=== PATIENT | female | born 1980 | race American Indian/Alaskan Native ===

== ENCOUNTER 2019-12-25 10:56 | Day surgery (SDC) | payer MEDICAID ==
[2019-12-23 14:08] LABS: Hematocrit 36.5 % (30.3-42.9); Hemoglobin 12.9 gm/dl (10.1-14.3); Mean Corpuscular HGB Conc 35 % (30-34); Mean Corpuscular Volume 85 fl (79-97); Platelet Count 314 K/mm3 (140-440); Red Blood Count 4.29 M/mm3 (3.65-5.03); Red Cell Distribution Width 12.9 % (13.2-15.2)
[2019-12-23 14:33] LABS: Calcium 9.2 mg/dL (8.4-10.2)
--- NOTE | 2019-12-23 14:37 | Anesthesia Consultation ---
Anesthesia Consult and Med Hx Date of service: 12/25/19 - Airway Anesthetic Teeth Evaluation: Good ROM Head & Neck: Adequate Mental/Hyoid Distance: Adequate Mallampati Class: Class II Intubation Access Assessment: Probably Good - Pulmonary Exam CTA: Yes - Cardiac Exam Cardiac Exam: RRR - Pre-Operative Health Status ASA Pre-Surgery Classification: ASA3 Proposed Anesthetic Plan: General - Pulmonary Hx Smoking: No Hx Asthma: Yes (last albulterol use 10/2019; instructed to bring inhaler morning of surgery) Hx Respiratory Symptoms: No - Cardiovascular System Hx Hypertension: Yes Hx Heart Attack/AMI: No Hx Percutaneous Transluminal Coronary Angioplasty (PTCA): No Hx Cardia Arrhythmia: No - Central Nervous System Hx Neuromuscular Disorder: Yes (narcolepsy; no meds) Hx Seizures: Yes (last seizure 10/2019; instructed to take AEDs morning of surgery.) CVA: No Hx Psychiatric Problems: Yes (depression) - Gastrointestinal Hx Gastroesophageal Reflux Disease: Yes - Endocrine Hx Renal Disease: No Hx Liver Disease: No Hx Insulin Dependent Diabetes: Yes (instructed to take 2/3rds usual bedtime insulin dose night before surgery) Hx Thyroid Disease: No - Hematic Hx Anemia: No - Other Systems Hx Obesity: No - Additional Comments Anesthesia Medical History Comments: No hx anesthetic complications.
[2019-12-23 16:46] VITALS: BP 141/79
[~2019-12-25 10:56] MED LIST: ACETAMINOPHEN 500 MG TAB PO SCH; GABAPENTIN 300 MG CAP PO NR; LACTATED RINGERS 1,000 ML IV SCH; MIDAZOLAM 2 MG/2 ML INJ IV NR
== END 2019-12-25 10:57 | disposition home or self-care (01) ==
LOC: OR 10:56
PROVIDERS: ATTEND Obstetrics & Gynecology
DX: R10.2 Pelvic and perineal pain (principal); Z20.828 Contact with and (suspected) exposure to other viral communicable diseases; Z53.8 Procedure and treatment not carried out for other reasons; G43.909 Migraine, unspecified, not intractable, without status migrainosus; I10 Essential (primary) hypertension; K21.9 Gastro-esophageal reflux disease without esophagitis; E11.9 Type 2 diabetes mellitus without complications; F32.9 Major depressive disorder, single episode, unspecified; N83.201 Unspecified ovarian cyst, right side; Z88.8 Allergy status to other drugs, medicaments and biological substances; Z98.42 Cataract extraction status, left eye; Z98.890 Other specified postprocedural states; Z90.49 Acquired absence of other specified parts of digestive tract; Z87.440 Personal history of urinary (tract) infections; Z79.899 Other long term (current) drug therapy
CPT/HCPCS: 36415; 80048; 84703; 85027; J7120; U0003; J2250

== ENCOUNTER 2019-12-31 11:48 | Observation (INO) | payer MEDICAID ==
[~2019-12-31 11:48] MED LIST changes: +BUPIVACAINE/PF (0.5%) 5 MG/1 ML 30 ML VIAL INFILTRATI ONE; +SCOPOLAMINE TRANSDERMAL PATCH 72 HR TD NR
--- NOTE | 2019-12-31 12:41 | Anesthesia Day of Surgery ---
Anesthesia Day of Surgery - Day of Surgery Patient Examined: Yes Patient H&P Reviewed: Yes Patient is NPO: Yes Beta Blockers: Yes (12/30/19 pm)
[2019-12-31] MEDS ORDERED: INSULIN REGULAR, HUMAN 100 UNITS/1 ML ONE (13:00)
[2019-12-31] MEDS ORDERED: BUPIVACAINE/PF (0.5%) 5 MG/1 ML 30 ML VIAL INFILTRATI ONE ×2 (13:19→15:00)
[2019-12-31] MEDS ORDERED: GENTAMICIN/NS 120MG/100ML 120 MG/100 ML BAG IV SCH (13:28)
[2019-12-31] MEDS ORDERED: ROCURONIUM 50 MG/5 ML INJ IV ONE (13:36)
[2019-12-31] MEDS ORDERED: dexAMETHasone 20 MG/5 ML VIAL ONE (13:36)
[2019-12-31] MEDS ORDERED: LIDOCAINE MPF (2%) 20 MG/1 ML VIAL 5 ML ONE (13:36)
[2019-12-31] MEDS ORDERED: propofoL 200 MG/20 ML VIAL IV ONE (13:36)
[2019-12-31] MEDS ORDERED: HYDROmorphone 1 MG/1 ML INJ ONE (13:36)
[2019-12-31] MEDS ORDERED: ONDANSETRON 4 MG/2 ML INJ ONE (13:36)
[2019-12-31] MEDS ORDERED: INSULIN REGULAR, HUMAN 100 UNIT/ML 3ML VIAL IV ONE (13:43)
[2019-12-31] MEDS ORDERED: GLYCOPYRROLATE 0.4 MG/2 ML INJ ONE (14:57)
[2019-12-31] MEDS ORDERED: NEOSTIGMINE 10MG/10 ML INJ MDV ONE (14:57)
[2019-12-31] MEDS ORDERED: LACTATED RINGERS 1,000 ML ONE (15:15)
--- NOTE | 2019-12-31 15:35 | Operative Report ---
Operative Report Operative Report: Preoperative diagnosis: Pelvic pain,adnexal mass Postoperative diagnosis: Same Procedure: Exam under anesthesia, removal of IUD, operative laparoscopy with left ovarian cystectomy Surgeon: Dr. Sue Kaur Anesthesia:GET Complications: None EBL: Less than 25ml IV fluid: 1 L crystalloid Urine output: 100 mL, adequate and clear Drain: None Findings: Normal uterine size, bilateral ovarian nodularity, left ovarian cyst, no pelvic adhesions Procedure: Patient was taken to the operating room after receiving informed consent in preop holding. She was given excellent general endotracheal anesthesia. She was then placed in the dorsal lithotomy position prepped and draped in a sterile fashion. A timeout was verified. A Casillas catheter was placed atraumatically. A speculum was placed in the vaginal vault and the anterior lip of the cervix grasped with a single-tooth tenaculum. The Mirena IUD strings were easily visualized and grasped with a ring forceps, and the IUD removed atraumatically. The uterine acorn manipulator was then advanced into the endocervical canal. Attention turned to the abdomen. A infraumbilical incision was made sharply with a scalpel and taken down to the underlying fascia. The fascia was grasped with Sg clamps and incised in the midline to allow for atraumatic entry of a Velazquez trocar. Correct placement of the Velazquez trocar was confirmed under direct visualization. Patient was then placed in steep Trendelenburg. A 5 mm left lateral trocar port was placed under direct visualization without complication. The uterus was noted to be midline without pathology, the ovaries bilaterally were noted to be nodular with no obvious pathology. There was a distinct left ovarian cyst that was removed with the LigaSure with excellent hemostasis. The abdomen was copiously irrigated with normal saline with no active bleeding noted at the completion of the procedure. The ovarian cyst was removed with an Endobag and sent to pathology. The Velazquez trocar and the left lateral port removed atraumatically. The fascia was closed with 0 Vicryl in a [id number] suture. The skin was closed with Monocryl and Dermabond applied at both incision sites. Patient's mother was notified of her stable condition at the completion of the procedure. Patient was taken to the recovery area in stable condition she will follow-up as an outpatient. Dr Sue Kaur
[2019-12-31] MEDS: HYDROmorphone 1 MG/1 ML INJ IV PRN ×2 (15:44→15:55)
--- NOTE | 2019-12-31 18:00 | Post Anesthesia Evaluation ---
- Post Anesthesia Evaluation Patient Participated: Yes Airway Patent: Yes Stable Respiratory Function: Yes Nausea/Vomiting: No Temp > 96.8F: Yes Pain Manageable: Yes Adequeate Hydration: Yes Anesthesia Complications: No Other Comments: After meeting criteria for phase II, patient was assisted to the restroom where she lost consciousness and had possible seizure activity. Pulse and adequate respirations were maintained. OR staff transferred patient to stretcher without injury and she was reconnected to monitors and O2. First set VS were near preop baseline. Presumed seizure activity had stopped at this time without intervention. Surgeon updated on events and decision was made to admit overnight for observation w/ possible neuro consult in the morning. Hospitalist was consulted. Over the next hour, patient became arousable, was oriented, and confirmed that she felt similar to previous seizure episodes. There were no focal neurologic deficits. Patient's family was updated.
[2019-12-31] MEDS ORDERED: SODIUM CHLORIDE 0.9% 1000 ML 1,000 ML IV SCH (20:00)
[2019-12-31 21:01] LABS: Basophils % (Auto) 0.4 % (0.0-1.8); Eosinophils % (Auto) 0.1 % (0.0-4.3); Hemoglobin 11.9 gm/dl (10.1-14.3); Lymphocytes # (Auto) 1.7 K/mm3 (1.2-5.4); Lymphocytes % (Auto) 13.9 % (13.4-35.0); Mean Corpuscular HGB Conc 37 % (30-34); Mean Corpuscular Volume 84 fl (79-97); Monocytes # (Auto) 0.6 K/mm3 (0.0-0.8); Monocytes % (Auto) 4.8 % (0.0-7.3); Platelet Count 258 K/mm3 (140-440); Red Blood Count 3.86 M/mm3 (3.65-5.03); Red Cell Distribution Width 12.8 % (13.2-15.2)
[2019-12-31 21:02] LABS: Hematocrit 32.6 % (30.3-42.9)
[2020-01-01] MEDS: HYDROcodone/ACETAMINOPHEN 5-325 MG TAB PO PRN ×2 (06:12→12:43)
[2020-01-01] MEDS ORDERED: ALBUTEROL 2.5 MG/3 ML NEBU IH PRN (09:11)
[2020-01-01] MEDS ORDERED: FLUoxetine 20 MG CAP PO SCH (10:00)
[2020-01-01] MEDS ORDERED: lamoTRIgine 100 MG TAB PO SCH (10:00)
--- NOTE | 2020-01-01 10:47 | History and Physical Report ---
History of Present Illness Date of examination: 01/01/20 Date of admission: 12/31/19 17:23 Medications and Allergies Allergies Allergy/AdvReac Type Severity Reaction Status Date / Time ceftriaxone [From Rocephin] Allergy Seizure Verified 12/28/19 13:01 minocycline Allergy Seizure Verified 12/28/19 13:01 iv dye Allergy Seizure Uncoded 12/28/19 13:01 Home Medications Medication Instructions Recorded Confirmed Last Taken Type FLUoxetine [PROzac] 20 mg PO QDAY 08/12/15 12/31/19 12/30/19 20:00 History labetaloL [Normodyne] 200 mg PO BID 08/12/15 12/31/19 12/31/19 08:00 History lamoTRIgine [LaMICtal] 100 mg PO BID 08/12/15 12/31/19 12/31/19 08:00 History Albuterol Sulfate [Proventil Hfa] 2 puff IH Q4H PRN 12/23/19 12/31/19 12/30/19 20:00 History Ibuprofen [Motrin] 600 mg PO Q8H PRN #60 tablet 12/31/19 Unknown Rx oxyCODONE /ACETAMINOPHEN [Percocet 1 tab PO Q6HR PRN #20 tablet 12/31/19 Unknown Rx 5/325] Active Meds: Active Medications Hydrocodone Bitart/Acetaminophen ([place] 5/325) 2 each PO Q6H PRN PRN Reason: Pain, Moderate (4-6) Last Admin: 01/01/20 06:12 Dose: 2 each Documented by: Albuterol (Proventil) 2.5 mg IH Q4HRT PRN PRN Reason: Shortness Of Breath Fluoxetine HCl (Prozac) 20 mg PO QDAY JAME Last Admin: 01/01/20 10:13 Dose: 20 mg Documented by: Hydromorphone HCl (Dilaudid) 0.5 mg IV Q10MIN PRN PRN Reason: Pain , Severe (7-10) Stop: 01/01/20 13:34 Last Admin: 12/31/19 15:55 Dose: 0.5 mg Documented by: Clindamycin HCl (Cleocin 900 Mg/50 Ml) 900 mg in 50 mls @ 100 mls/hr IV PREOP NR; Protocol Stop: 01/01/20 13:26 Last Admin: 12/31/19 13:45 Dose: 100 mls/hr Documented by: Gentamicin Sulfate/Sodium Chloride (Gentamicin/Ns 120mg/100ml) 120 mg in 100 mls @ 194.175 mls/hr IV PREOP JAME; Protocol Stop: 01/01/20 13:27 Sodium Chloride (Nacl 0.9% 1000 Ml) 1,000 mls @ 75 mls/hr IV DIRECT JAME Labetalol HCl (Labetalol) 200 mg PO BID [facility] Last Admin: 01/01/20 10:13 Dose: 200 mg Documented by: Lamotrigine (Lamictal) 100 mg PO BID [facility] Last Admin: 01/01/20 10:13 Dose: 100 mg Documented by: - Vital Signs Vital signs: Vital Signs Temp Pulse Resp BP Pulse Ox 98.1 F 86 18 131/79 97 12/31/19 12:10 12/31/19 12:10 12/31/19 12:10 12/31/19 12:10 12/31/19 12:10 Temp Pulse Resp BP Pulse Ox 98.5 F 83 18 153/94 98 01/01/20 06:06 01/01/20 06:06 01/01/20 06:06 01/01/20 06:06 01/01/20 06:06 Results Result Diagrams: 12/31/19 20:36 Abnormal lab results 12/31/19 12/31/19 12/31/19 Range/Units 12:52 15:46 17:23 WBC (4.5-11.0) K/mm3 MCHC (30-34) % RDW (13.2-15.2) % Seg Neutrophils % (40.0-70.0) % Seg Neutrophils # (1.8-7.7) K/mm3 POC Glucose 206 H 153 H 199 H (70-105) mg/dL 12/31/19 Range/Units 20:36 WBC 12.0 H (4.5-11.0) K/mm3 MCHC 37 H (30-34) % RDW 12.8 L (13.2-15.2) % Seg Neutrophils % 80.8 H (40.0-70.0) % Seg Neutrophils # 9.7 H (1.8-7.7) K/mm3 POC Glucose (70-105) mg/dL All other labs normal.
--- NOTE | 2020-01-01 10:50 | Discharge Summary ---
Providers - Providers Date of Admission: 12/31/19 17:23 Date of discharge: 01/01/20 Attending physician: KAT ABREU MD Primary care physician: SURGICAL COORDINATOR Hospitalization Reason for admission: other (IUD in situ, left ovarian cyst) Procedure: other (left ovarian cystectomy, IUD removal) Procedure details: s/p uncomplicated IUD removal and Left laparoscopic cystectomy for pelvic pain and adnexal mass. Episiotomy: none Laceration: none Incision: normal Hospital course: Admitted for IUD removal and laparoscopic L cystectomy. Uncomplicated procedure, however admitted for postoperative seizure episode. Known seizure hx on Lamictal. Denies missing dose. Meeting postoperative goals on POD1. Discharge in good condition. Condition at discharge: Good Disposition: DC- TO HOME OR SELFCARE - Discharge Diagnoses (1) Left ovarian cyst Status: Acute Plan - Discharge Medications Prescriptions: Ibuprofen [Motrin] 600 mg PO Q8H PRN #60 tablet PRN Reason: Pain oxyCODONE /ACETAMINOPHEN [Percocet 5/325] 1 tab PO Q6HR PRN #20 tablet PRN Reason: Pain - Provider Discharge Summary Additional instructions: [] Smoking cessation referral if applicable(refer to patient education folder for contact #) [] Refer to [facility] Booklet Call your doctor immediately for: * Fever > 100.5 * Heavy vaginal bleeding ( >1 pad per hour) * Severe persistent headache * Shortness of breath * Reddened, hot, painful area to leg or breast * Drainage or odor from incision. * Keep incision clean and dry at all times and follow doctor's instructions regarding bathing/showering - Follow up plan Follow up: PRIMARY CAREMD [Primary Care Provider] - 7 Days Forms: Outpatient Surgery DC Inst.
[2020-01-01 13:47] VITALS: BP 139/79
== END 2020-01-01 14:45 | disposition home or self-care (01) ==
LOC: OR 11:48 → 3A 17:23
PROVIDERS: ADMIT Obstetrics & Gynecology; ATTEND Obstetrics & Gynecology
DX: N83.202 Unspecified ovarian cyst, left side (principal); Z20.828 Contact with and (suspected) exposure to other viral communicable diseases; R19.00 Intra-abdominal and pelvic swelling, mass and lump, unspecified site; Z30.432 Encounter for removal of intrauterine contraceptive device; Z79.899 Other long term (current) drug therapy
CPT/HCPCS: 36415; 58301; 58662; 81025; 82962; 85025; 88304; 96361; 96374; 96375; G0378; J1100; J1170; J1580; J2250; J2405; J2704; J2710; J7030; J7120; U0003; J1815

== ENCOUNTER 2020-01-03 01:06 | Inpatient (IN) | payer MEDICAID ==
[2020-01-03] MEDS ORDERED: HYDROmorphone 1 MG/1 ML INJ IV ONE (01:19)
[2020-01-03] MEDS ORDERED: ONDANSETRON 4 MG/2 ML INJ IV ONE (01:19)
[2020-01-03] MEDS ORDERED: SODIUM CHLORIDE 0.9% 1000 ML 1,000 ML IV ONE (01:26)
--- NOTE | 2020-01-03 01:27 | Emergency Department Report ---
ED Abdominal Pain HPI - General Stated Complaint: HERNIA/SURGICAL SITE OPENED PUI?: No Time Seen by Provider: 01/03/20 01:14 Source: patient, EMS, old records reviewed Mode of arrival: Stretcher Limitations: No Limitations - History of Present Illness Initial Comments: CC: abdominal pain HPI: This is a 39 yo female with hx of DM, HTN, epilepsy, narcolepsy who presents with bowel evisceration after coughing this evening. Patient arrives via EMS in 12/04 pain. Bowel is protruding through umbilical surgical wound. Patient received Fentanyl en route. According to recent discharge summary, patient was discharged 2 days ago 01/01/2020 after IUD removal and left laparoscopic cystectomy by Dr. Kaur. Surgery occurred on 12/31/2019 MD Complaint: abdominal pain -: Sudden, This evening Location: periumbilical Radiation: none Severity: severe Severity scale (0 -10): 10 Quality: sharp Consistency: constant Improves With: nothing Worsens With: movement Associated Symptoms: denies other symptoms - Related Data Home Medications Medication Instructions Recorded Confirmed Last Taken FLUoxetine [PROzac] 20 mg PO QDAY 08/12/15 12/31/19 12/30/19 20:00 labetaloL [Normodyne] 200 mg PO BID 08/12/15 12/31/19 12/31/19 08:00 lamoTRIgine [LaMICtal] 100 mg PO BID 08/12/15 12/31/19 12/31/19 08:00 Albuterol Sulfate [Proventil Hfa] 2 puff IH Q4H PRN 12/23/19 12/31/19 12/30/19 20:00 Previous Rx's Medication Instructions Recorded Last Taken Type Ibuprofen [Motrin] 600 mg PO Q8H PRN #60 tablet 12/31/19 Unknown Rx oxyCODONE /ACETAMINOPHEN [Percocet 1 tab PO Q6HR PRN #20 tablet 12/31/19 Unknown Rx 5/325] Allergies Allergy/AdvReac Type Severity Reaction Status Date / Time ceftriaxone [From Rocephin] Allergy Seizure Verified 12/28/19 13:01 minocycline Allergy Seizure Verified 12/28/19 13:01 iv dye Allergy Seizure Uncoded 12/28/19 13:01 ED Review of Systems ROS: Stated complaint: HERNIA/SURGICAL SITE OPENED Other details as noted in HPI Comment: All other systems reviewed and negative Constitutional: denies: fever, malaise Respiratory: denies: cough, shortness of breath Gastrointestinal: abdominal pain, nausea. denies: vomiting, diarrhea ED Past Medical Hx - Past Medical History Previous Medical History?: Yes Hx Hypertension: Yes Hx Congestive Heart Failure: No Hx Diabetes: Yes (Type 2) Hx GERD: Yes Hx Headaches / Migraines: Yes (Migraines) Hx Seizures: Yes Hx Asthma: Yes (last albulterol use 10/2019; instructed to bring inhaler morning of surgery) Hx COPD: No - Surgical History Past Surgical History?: Yes Hx Cholecystectomy: Yes - Social History Smoking Status: Never Smoker - Medications Home Medications: Home Medications Medication Instructions Recorded Confirmed Last Taken Type FLUoxetine [PROzac] 20 mg PO QDAY 08/12/15 12/31/19 12/30/19 20:00 History labetaloL [Normodyne] 200 mg PO BID 08/12/15 12/31/19 12/31/19 08:00 History lamoTRIgine [LaMICtal] 100 mg PO BID 08/12/15 12/31/19 12/31/19 08:00 History Albuterol Sulfate [Proventil Hfa] 2 puff IH Q4H PRN 12/23/19 12/31/19 12/30/19 20:00 History Ibuprofen [Motrin] 600 mg PO Q8H PRN #60 tablet 12/31/19 Unknown Rx oxyCODONE /ACETAMINOPHEN [Percocet 1 tab PO Q6HR PRN #20 tablet 12/31/19 Unknown Rx 5/325] ED Physical Exam - General General appearance: alert, in no apparent distress, other (appears in severe discomfort) - Head Head exam: Present: atraumatic, normocephalic - Eye Eye exam: Present: normal appearance - ENT ENT exam: Present: mucous membranes moist - Neck Neck exam: Present: normal inspection, full ROM - Respiratory Respiratory exam: Present: normal lung sounds bilaterally. Absent: respiratory distress, wheezes, rales, rhonchi - Cardiovascular Cardiovascular Exam: Present: regular rate, normal rhythm, normal heart sounds. Absent: systolic murmur, diastolic murmur, rubs, gallop - GI/Abdominal GI/Abdominal exam: Present: distended, tenderness, guarding, hernia (bowel evisceration at umbilicus) - Extremities Exam Extremities exam: Present: normal inspection - Back Exam Back exam: Present: normal inspection - Neurological Exam Neurological exam: Present: alert, oriented X3 - Psychiatric Psychiatric exam: Present: normal affect, normal mood - Skin Skin exam: Present: warm, dry, intact, normal color. Absent: rash ED Medical Decision Making - Medical Decision Making Clinical impression: wound dehiscence, bowel evisceration, strangulated hernia I immediately spoke with Dr. Nagy covering kiln puller who recommended general surgery consultation. I spoke with Dr. Eaton who readily agreed to assist with patient's surgical treatment. He recommended IV Zosyn preoperative dose. Dr. Burden hospitalist agreed to admit Critical Care Time: Yes Critical care time in (mins) excluding proc time.: 40 Critical care attestation.: If time is entered above; I have spent that time in minutes in the direct care of this critically ill patient, excluding procedure time. 40 minutes of critical care time excluding procedures were used in the care of the patient. Prior to patient's arrival, provided online medical control to EMS for fentanyl administration. I came immediately to the bedside upon patient's arrival. I obtained history from EMS at the bedside. I discussed treatment plan with the nursing team members. I reviewed electronic record. I was concerned for strangulated bowel. I immediately consulted kiln puller. Patient required multiple interventions and reassessments. ED Disposition Clinical Impression: Evisceration of bowel, Wound dehiscence, Strangulated hernia of abdominal wall Disposition: OP ADMIT IP TO THIS HOSP Is pt being admited?: Yes Does the pt Need Aspirin: No Condition: Stable
[2020-01-03] MEDS ORDERED: PIPERACIL/TAZOBACTA 4.5/NS 100 4.5 GM/100 ML VIAL IV ONE (01:40)
[2020-01-03 02:01] LABS: Basophils % (Auto) 0.2 % (0.0-1.8); Eosinophils # (Auto) 0.1 K/mm3 (0.0-0.4); Eosinophils % (Auto) 1.2 % (0.0-4.3); Hematocrit 39.3 % (30.3-42.9); Hemoglobin 13.8 gm/dl (10.1-14.3); Lymphocytes # (Auto) 1.5 K/mm3 (1.2-5.4); Lymphocytes % (Auto) 16.4 % (13.4-35.0); Mean Corpuscular HGB Conc 35 % (30-34); Mean Corpuscular Volume 88 fl (79-97); Monocytes # (Auto) 0.8 K/mm3 (0.0-0.8); Monocytes % (Auto) 8.9 % (0.0-7.3); Platelet Count 267 K/mm3 (140-440); Red Cell Distribution Width 12.6 % (13.2-15.2)
[2020-01-03 02:21] LABS: BUN/Creatinine Ratio 6; Blood Urea Nitrogen 7 mg/dL (7-17); Calcium 8.9 mg/dL (8.4-10.2); Hemolysis Index 31
--- NOTE | 2020-01-03 02:44 | History and Physical Report ---
History of Present Illness Date of examination: 01/03/20 Date of admission: 01/03/20 01:56 History of present illness: 39-year-old who is status post laparoscopic left ovarian cystectomy on 12/30 presents to the ER with 10 out of 10 abdominal pain, particular at the umbilicus. Past History Past Medical History: asthma, hypertension, diabetes, seizure, migraines, GERD, other (narcolepsy) Past Surgical History: cholecystectomy, CAREER ADVISOR/uterine surgery Medications and Allergies Allergies Allergy/AdvReac Type Severity Reaction Status Date / Time ceftriaxone [From Rocephin] Allergy Seizure Verified 12/28/19 13:01 minocycline Allergy Seizure Verified 12/28/19 13:01 iv dye Allergy Seizure Uncoded 12/28/19 13:01 Home Medications Medication Instructions Recorded Confirmed Last Taken Type FLUoxetine [PROzac] 20 mg PO QDAY 08/12/15 12/31/19 12/30/19 20:00 History labetaloL [Normodyne] 200 mg PO BID 08/12/15 12/31/19 12/31/19 08:00 History lamoTRIgine [LaMICtal] 100 mg PO BID 08/12/15 12/31/19 12/31/19 08:00 History Albuterol Sulfate [Proventil Hfa] 2 puff IH Q4H PRN 12/23/19 12/31/19 12/30/19 20:00 History Ibuprofen [Motrin] 600 mg PO Q8H PRN #60 tablet 12/31/19 Unknown Rx oxyCODONE /ACETAMINOPHEN [Percocet 1 tab PO Q6HR PRN #20 tablet 12/31/19 Unknown Rx 5/325] Review of Systems All systems: negative (see HPI) - Vital Signs Vital signs: Vital Signs Resp 18 01/03/20 01:58 Temp Pulse Resp BP Pulse Ox 18 01/03/20 01:58 - Physical Exam Abdomen: Positive: other (purplish loop of bowel protruding out of the umbilicus and periumbilical abd is tender.) Results Result Diagrams: 01/03/20 01:45 01/03/20 01:45 Abnormal lab results 01/03/20 Range/Units 01:45 MCHC 35 H (30-34) % RDW 12.6 L (13.2-15.2) % [place] % (Auto) 8.9 H (0.0-7.3) % Seg Neutrophils % 73.3 H (40.0-70.0) % All other labs normal. Assessment and Plan - Patient Problems (1) Evisceration of bowel Current Visit: Yes Status: Acute Plan to address problem: Eviscerated bowel covered in ED with moist gauze. PT consented for laparotomy, possible colectomy, possible colostomy. General surgeon agreed to do the case with me. Patient fully consented for the surgery. Risks, benefits, and alternatives were all discussed with the patient including risk of bleeding, infection, and potential for injury. Patient understands and accepts these risks. Patient agrees to proceed with surgery. All questions were answered.
[2020-01-03] MEDS ORDERED: LACTATED RINGERS 1,000 ML ONE (03:48)
--- NOTE | 2020-01-03 03:51 | Anesthesia Consultation ---
Anesthesia Consult and Med Hx Date of service: 01/03/20 - Airway Anesthetic Teeth Evaluation: Good ROM Head & Neck: Adequate Mental/Hyoid Distance: Adequate Mallampati Class: Class II Intubation Access Assessment: Probably Good - Pulmonary Exam CTA: Yes - Pre-Operative Health Status ASA Pre-Surgery Classification: ASA3, Emergency Proposed Anesthetic Plan: General - Pulmonary Hx Smoking: No Hx Asthma: Yes (last albulterol use 10/2019; instructed to bring inhaler morning of surgery) Hx Respiratory Symptoms: No COPD: No Hx Pneumonia: No Hx Sleep Apnea: Yes - Cardiovascular System Hx Hypertension: Yes Hx Heart Attack/AMI: No Hx Angina: No Hx Cardia Arrhythmia: No - Central Nervous System Hx Neuromuscular Disorder: Yes (narcolepsy; no meds) Hx Seizures: Yes Hx Psychiatric Problems: Yes (depression) - Gastrointestinal Hx Gastroesophageal Reflux Disease: Yes - Endocrine Hx Renal Disease: No Hx Insulin Dependent Diabetes: Yes (instructed to take 2/3rds usual bedtime insulin dose night before surgery) Hx Thyroid Disease: No - Other Systems Hx Cancer: No Hx Obesity: Yes (36.6kg) - Additional Comments Anesthesia Medical History Comments: Patient denies previous anesthesia related complication
--- NOTE | 2020-01-03 03:52 | Anesthesia Day of Surgery ---
Anesthesia Day of Surgery - Day of Surgery Patient Examined: Yes Patient H&P Reviewed: Yes Patient is NPO: Yes Beta Blockers: No Cardiac Clearance: No Pulmonary Clearance: No
[2020-01-03] MEDS ORDERED: LIDOCAINE MPF (2%) 20 MG/1 ML VIAL 5 ML ONE (03:53)
[2020-01-03] MEDS ORDERED: ONDANSETRON 4 MG/2 ML INJ ONE (03:53)
[2020-01-03] MEDS ORDERED: SUCCINYLCHOLINE CHLORIDE 200 MG/10 ML INJ MDV ONE (03:53)
[2020-01-03] MEDS ORDERED: ROCURONIUM 50 MG/5 ML INJ IV ONE (03:53)
[2020-01-03] MEDS ORDERED: propofoL 200 MG/20 ML VIAL IV ONE (03:54)
[2020-01-03] MEDS ORDERED: HYDROmorphone 1 MG/1 ML INJ ONE (03:54)
[2020-01-03] MEDS ORDERED: SODIUM CHLORIDE 0.9% IRR 1,500 ML BOTTLE IR ONE (04:37)
[2020-01-03] MEDS ORDERED: GLYCOPYRROLATE 0.4 MG/2 ML INJ ONE (05:57)
[2020-01-03] MEDS ORDERED: NEOSTIGMINE 10MG/10 ML INJ MDV ONE (05:57)
[2020-01-03] MEDS ORDERED: SODIUM CHLORIDE 0.9% 1000 ML 1,000 ML ONE (05:58)
[2020-01-03] MEDS ORDERED: BUPIVACAINE-EPINEPHRINE/PF 0.5%-1:200,000 (10 ML) VIAL INFILTRATI ONE (06:08)
[2020-01-03] MEDS ORDERED: BUPIVACAINE-EPINEPHRINE/PF 0.25%-1:200,000 (10 ML) VIAL INFILTRATI ONE (06:08)
[2020-01-03] MEDS ORDERED: BUPIVACAINE-EPINEPHRINE/PF 0.5%-1:200,000 (30 ML) VIAL INFILTRATI ONE (06:15)
--- NOTE | 2020-01-03 06:15 | History and Physical Report ---
History of Present Illness Date of examination: 01/03/20 Date of admission: 01/03/20 01:56 Chief complaint: Abdominal pain few hours History of present illness: 39-year-old female with history of diabetes, hypertension, epilepsy, narcolepsy had surgery on 01/01/2020 which involved laparoscopic cystectomy. Postop she did well. Today after coughing abdominal wound near the umbilicus opened up with bowels protruding through. The ER physician called surgery and [employer] for opening of the abdomen and and cleaning of the small bowels and possible correct the possible perforation. No imaging studies were done. The clinical diagnosis was bowel evisceration peritonitis and possible small bowel perforation. Patient is being taken to surgery immediately. - Past Medical History Previous Medical History?: Yes --Hypertension: Yes --Diabetes: Yes (Type 2) --GERD: Yes --Headaches / Migraines: Yes (Migraines) --Seizures: Yes --Asthma: Yes (last albulterol use 10/2019; instructed to bring inhaler morning of surgery) - Surgical History Past Surgical History?: Yes --Cholecystectomy: Yes Ovarian cystectomy - Social History Smoking Status: Never Smoker Family history Htn - Medications Home Medications: Home Medications Medication Instructions Recorded Confirmed Last Taken Type FLUoxetine [PROzac] 20 mg PO QDAY 08/12/15 12/31/19 12/30/19 20:00 History labetaloL [Normodyne] 200 mg PO BID 08/12/15 12/31/19 12/31/19 08:00 History lamoTRIgine [LaMICtal] 100 mg PO BID 08/12/15 12/31/19 12/31/19 08:00 History Albuterol Sulfate [Proventil Hfa] 2 puff IH Q4H PRN 12/23/19 12/31/19 12/30/19 20:00 History Ibuprofen [Motrin] 600 mg PO Q8H PRN #60 tablet 12/31/19 Unknown Rx oxyCODONE /ACETAMINOPHEN [Percocet 1 tab PO Q6HR PRN #20 tablet 12/31/19 Unknown Rx 5/325] Review of Systems ROS: GI evisceration of bowel, wound dehiscence, strangulated hernia of abdominal wall Stated complaint: HERNIA/SURGICAL SITE OPENED Constitutional no weight loss or weight gain no fever or chills HEENT no sore throat no post nasal drip no diplopia Neck no neck stiffness no lymph gland enlargement Chest and lungs no shortness of breath cough or wheezing CVS no chest pain no diaphoresis no palpitations Genitourinary system no dysuria no flank pain Musculoskeletal system no muscle pains no joint 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 Skin no rash no itching Psychiatric no depression no homicidal or suicidal tendencies Hematologic no lymphedema or bruising Endocrine no polydipsia no polyuria no cold intolerance no heat intolerance Medications and Allergies Allergies Allergy/AdvReac Type Severity Reaction Status Date / Time ceftriaxone [From Rocephin] Allergy Seizure Verified 12/28/19 13:01 minocycline Allergy Seizure Verified 12/28/19 13:01 iv dye Allergy Seizure Uncoded 12/28/19 13:01 Home Medications Medication Instructions Recorded Confirmed Last Taken Type FLUoxetine [PROzac] 20 mg PO QDAY 08/12/15 12/31/19 12/30/19 20:00 History labetaloL [Normodyne] 200 mg PO BID 08/12/15 12/31/19 12/31/19 08:00 History lamoTRIgine [LaMICtal] 100 mg PO BID 08/12/15 12/31/19 12/31/19 08:00 History Albuterol Sulfate [Proventil Hfa] 2 puff IH Q4H PRN 12/23/19 12/31/19 12/30/19 20:00 History Ibuprofen [Motrin] 600 mg PO Q8H PRN #60 tablet 12/31/19 Unknown Rx oxyCODONE /ACETAMINOPHEN [Percocet 1 tab PO Q6HR PRN #20 tablet 12/31/19 Unknown Rx 5/325] Exam - Constitutional Vitals: Temp Pulse Resp BP Pulse Ox 97.9 F 97 H 19 179/97 98 01/03/20 01:20 01/03/20 03:00 01/03/20 03:00 01/03/20 03:00 01/03/20 03:00 General appearance: Present: severe distress, well-nourished - EENT Eyes: Present: PERRL ENT: hearing intact, clear oral mucosa - Neck Neck: Present: supple, normal ROM - Respiratory Respiratory effort: normal Respiratory: bilateral: CTA - Cardiovascular Heart rate: 98 Rhythm: regular Heart Sounds: Present: S1 & S2. Absent: rub, click - Extremities Extremities: no ischemia, pulses symmetrical, No edema Peripheral Pulses: within normal limits - Abdominal General gastrointestinal: Present: tender, distended, rigid, hypoactive bowel sounds Female genitourinary: Present: normal - Integumentary Integumentary: Present: clear, warm, dry - Musculoskeletal Musculoskeletal: gait normal, strength equal bilaterally - Psychiatric Psychiatric: appropriate mood/affect, intact judgment & insight - Neurologic Neurologic: CNII-XII intact, moves all extremities - Allied Health Allied health notes reviewed: nursing, case management Results - Labs CBC & Chem 7: 01/03/20 01:45 01/03/20 01:45 Labs: Laboratory Last Values WBC 9.3 K/mm3 (4.5-11.0) 01/03/20 01:45 RBC 4.50 M/mm3 (3.65-5.03) 01/03/20 01:45 Hgb 13.8 gm/dl (10.1-14.3) 01/03/20 01:45 Hct 39.3 % (30.3-42.9) D 01/03/20 01:45 MCV 88 fl (79-97) 01/03/20 01:45 MCH 31 pg (28-32) 01/03/20 01:45 MCHC 35 % (30-34) H 01/03/20 01:45 RDW 12.6 % (13.2-15.2) L 01/03/20 01:45 Plt Count 267 K/mm3 (140-440) 01/03/20 01:45 Lymph % (Auto) 16.4 % (13.4-35.0) 01/03/20 01:45 [place] % (Auto) 8.9 % (0.0-7.3) H 01/03/20 01:45 Eos % (Auto) 1.2 % (0.0-4.3) 01/03/20 01:45 Baso % (Auto) 0.2 % (0.0-1.8) 01/03/20 01:45 Lymph # (Auto) 1.5 K/mm3 (1.2-5.4) 01/03/20 01:45 [place] # (Auto) 0.8 K/mm3 (0.0-0.8) 01/03/20 01:45 Eos # (Auto) 0.1 K/mm3 (0.0-0.4) 01/03/20 01:45 Baso # (Auto) 0.0 K/mm3 (0.0-0.1) 01/03/20 01:45 Seg Neutrophils % 73.3 % (40.0-70.0) H 01/03/20 01:45 Seg Neutrophils # 6.8 K/mm3 (1.8-7.7) 01/03/20 01:45 Sodium 136 mmol/L (137-145) L 01/03/20 01:45 Potassium 3.9 mmol/L (3.6-5.0) 01/03/20 01:45 Chloride 101.6 mmol/L (98-107) 01/03/20 01:45 Carbon Dioxide 19 mmol/L (22-30) L 01/03/20 01:45 Anion Gap 19 mmol/L 01/03/20 01:45 BUN 7 mg/dL (7-17) 01/03/20 01:45 Creatinine 1.1 mg/dL (0.6-1.2) 01/03/20 01:45 Estimated GFR > 60 ml/min 01/03/20 01:45 BUN/Creatinine Ratio 6 % 01/03/20 01:45 Glucose 332 mg/dL (65-100) H 01/03/20 01:45 Calcium 8.9 mg/dL (8.4-10.2) 01/03/20 01:45 Blood Type A POSITIVE 01/03/20 01:50 Antibody Screen Negative 01/03/20 01:50 Short CBC 01/03/20 Range/Units 01:45 WBC 9.3 (4.5-11.0) K/mm3 Hgb 13.8 (10.1-14.3) gm/dl Hct 39.3 D (30.3-42.9) % Plt Count 267 (140-440) K/mm3 BMP 01/03/20 01:45 Sodium 136 L Potassium 3.9 Chloride 101.6 Carbon Dioxide 19 L BUN 7 Creatinine 1.1 Glucose 332 H Calcium 8.9 Assessment and Plan Advance Directives: Yes (Full code) VTE prophylaxis?: Chemical Plan of care discussed with patient/family: Yes - Patient Problems (1) Evisceration of bowel Current Visit: Yes Status: Acute Plan to address problem: Peritonitis present Patient started on IV Zosyn and IV Flagyl (2) Strangulated hernia of abdominal wall Current Visit: Yes Status: Acute Plan to address problem: Patient being taken to operating room for emergent surgery (3) Wound dehiscence Current Visit: Yes Status: Acute Plan to address problem: Patient being taken to operating room for emergency surgery Dr. Eaton is the surgeon Surgery consult appreciated (4) Left ovarian cyst Current Visit: No Status: Chronic Plan to address problem: Patient had cystectomy Now postop patient has complications (5) Hypertension Current Visit: Yes Status: Chronic Qualifiers: Hypertension type: essential hypertension Qualified Code(s): I10 - Essential (primary) hypertension Plan to address problem: Patient initiated on Catapres patch because she cannot take oral antihypertensives (6) T2DM (type 2 diabetes mellitus) Current Visit: Yes Status: Chronic Qualifiers: Diabetes mellitus penitentiary insulin use: without penitentiary use Plan to address problem: Coverage for now Check hemoglobin A1c (7) DVT prophylaxis Current Visit: Yes Status: Acute Plan to address problem: On heparin and GI prophylaxis
[2020-01-03] MEDS ORDERED: ALBUTEROL 8.5 GM MDI INHALATION IH PRN (06:25)
[2020-01-03] MEDS ORDERED: ACETAMINOPHEN 325 MG TAB PO PRN (06:32)
--- NOTE | 2020-01-03 06:33 | Consultation ---
History of Present Illness Consult date: 01/03/20 - History of present illness History of present illness: 39 yo female 5 days s/p a laparoscopic ovarian cystectomy who presents to the ED with eviceration of small bowel via her infraumbilical incision after coughing. Medications and Allergies Allergies Allergy/AdvReac Type Severity Reaction Status Date / Time ceftriaxone [From Rocephin] Allergy Seizure Verified 12/28/19 13:01 minocycline Allergy Seizure Verified 12/28/19 13:01 iv dye Allergy Seizure Uncoded 12/28/19 13:01 Home Medications Medication Instructions Recorded Confirmed Last Taken Type FLUoxetine [PROzac] 20 mg PO QDAY 08/12/15 12/31/19 12/30/19 20:00 History labetaloL [Normodyne] 200 mg PO BID 08/12/15 12/31/19 12/31/19 08:00 History lamoTRIgine [LaMICtal] 100 mg PO BID 08/12/15 12/31/19 12/31/19 08:00 History Albuterol Sulfate [Proventil Hfa] 2 puff IH Q4H PRN 12/23/19 12/31/19 12/30/19 20:00 History Ibuprofen [Motrin] 600 mg PO Q8H PRN #60 tablet 12/31/19 Unknown Rx oxyCODONE /ACETAMINOPHEN [Percocet 1 tab PO Q6HR PRN #20 tablet 12/31/19 Unknown Rx 5/325] Active Meds: Active Medications Albuterol (Proair) 2 puff IH Q4H PRN PRN Reason: Dyspnea Review of Systems All systems: negative (none) Exam Vital Signs Temp Pulse Resp BP Pulse Ox 97.9 F 96 H 19 176/102 99 01/03/20 01:20 01/03/20 01:20 01/03/20 01:20 01/03/20 01:20 01/03/20 01:20 - General physical appearance Positive: well developed, well nourished, no distress - Eyes Positive: PERRL, normal occular movement - ENT Positive: normal pinna, normal nares, normal mucosa, no hearing loss, no congestion - Neck Positive: no masses, no bruits, trachea midline, no venous distension - Respiratory Positive: normal expansion, normal respiratory effort, clear to auscultation - Cardiovascular Rhythm: regular Heart Sounds: Present: S1 & S2. Absent: rub, click - Extremities Extremities: no ischemia, pulses symmetrical, No edema - Breasts Breasts: normal, no mass, no skin changes - Abdomen Abdomen: Present: other (There is a 6 inch segment of evicerated small bowel which appears ischemic but not overtly gangrenous.) Hernia: none - Genitourinary Male Genitourinary: normal Female Genitourinary: normal - Integumentary no rash, no growths, no abnormal pigmentation - Neurologic Neurologic: alert and oriented to time, place and person, motor strength and sensation are grossly intact - Musculoskeletal normal gait, normal posture - Psychiatric Psychiatric: appropriate mood/affect, intact judgment & insight Results - Labs 01/03/20 01:45 01/03/20 01:45 Abnormal lab results 01/03/20 01/03/20 Range/Units 01:45 01:45 MCHC 35 H (30-34) % RDW 12.6 L (13.2-15.2) % [place] % (Auto) 8.9 H (0.0-7.3) % Seg Neutrophils % 73.3 H (40.0-70.0) % Sodium 136 L (137-145) mmol/L Carbon Dioxide 19 L (22-30) mmol/L Glucose 332 H (65-100) mg/dL Diabetes panel 01/03/20 Range/Units 01:45 Sodium 136 L (137-145) mmol/L Potassium 3.9 (3.6-5.0) mmol/L Chloride 101.6 (98-107) mmol/L Carbon Dioxide 19 L (22-30) mmol/L BUN 7 (7-17) mg/dL Creatinine 1.1 (0.6-1.2) mg/dL Glucose 332 H (65-100) mg/dL Calcium 8.9 (8.4-10.2) mg/dL Calcium panel 01/03/20 Range/Units 01:45 Calcium 8.9 (8.4-10.2) mg/dL Pituitary panel 01/03/20 Range/Units 01:45 Sodium 136 L (137-145) mmol/L Potassium 3.9 (3.6-5.0) mmol/L Chloride 101.6 (98-107) mmol/L Carbon Dioxide 19 L (22-30) mmol/L BUN 7 (7-17) mg/dL Creatinine 1.1 (0.6-1.2) mg/dL Glucose 332 H (65-100) mg/dL Calcium 8.9 (8.4-10.2) mg/dL Adrenal panel 01/03/20 Range/Units 01:45 Sodium 136 L (137-145) mmol/L Potassium 3.9 (3.6-5.0) mmol/L Chloride 101.6 (98-107) mmol/L Carbon Dioxide 19 L (22-30) mmol/L BUN 7 (7-17) mg/dL Creatinine 1.1 (0.6-1.2) mg/dL Glucose 332 H (65-100) mg/dL Calcium 8.9 (8.4-10.2) mg/dL Assessment and Plan - Patient Problems (1) Strangulated hernia of abdominal wall Current Visit: Yes Status: Acute Plan to address problem: 1) To OR urgently for reduction of evicerated small bowel and possible SBR. 2) IV Zosyn
[2020-01-03] MEDS ORDERED: ALBUTEROL 2.5 MG/3 ML NEBU IH PRN (06:35)
[2020-01-03] MEDS ORDERED: hydrALAZINE 20 MG/1 ML INJ ONE (06:43)
--- NOTE | 2020-01-03 06:45 | Procedure Note ---
Date of procedure: 01/03/20 Pre-op diagnosis: Evisceration of small bowel with possible strangulation Post-op diagnosis: other (1) Evisceration of small bowel without strangulation 2) Small bowel injury (See below)) Procedure: Exploratory laparotomy with reduction of eviscerated small bowel and repair of seromuscular small bowel injury Description of procedure: Pt was placed supine on the OR table. GETA was administered. Abdomen was prepped and draped. The infraumbilical fascial incision was extended above and below the umbilicus. Ischemic small bowel was reduced. A segment of the anti-mesenteric small bowel was sutured to the fascial closure and this small bowel was freed up by cutting the fascial suture. The injury to the small bowel appeared to be seromuscular as there was no leakage of small bowel contents. The small bowel injury was repaired with 3 interrupted Limbert sutures of 3-0 silk. After at least 20 minutes, the reduced, ischemic small bowel was re-examined and the bowel now appeared viable. A NG tube was placed by anesthesia to further decompress the small bowel. Fascia was approximated with a running suture of #1 Prolene. SQ tissue was irrigated with warm saline. Skin was approximated with a running, subcuticular suture of 4-0 Monocryl followed by 4 X 4's, an ABD and Medipore tape. Pt tolerated the procedure well. She was taken to PACU in stable condition. Anesthesia: GETA Surgeon: CHIRAG PEDROZA Estimated blood loss: minimal Pathology: none Condition: stable Disposition: PACU
[2020-01-03] MEDS ORDERED: HYDROmorphone 1 MG/1 ML INJ IV PRN (06:48)
[2020-01-03] MEDS ORDERED: hydrALAZINE 20 MG/1 ML INJ IV PRN (07:00)
[2020-01-03] MEDS ORDERED: cloNIDine TTS 0.1 MG/24 HR PATCH TD SCH (07:00)
--- NOTE | 2020-01-03 07:04 | Post Anesthesia Evaluation ---
- Post Anesthesia Evaluation Patient Participated: Yes Airway Patent: Yes Stable Respiratory Function: Yes Nausea/Vomiting: No Temp > 96.8F: Yes Pain Manageable: Yes Adequeate Hydration: Yes Anesthesia Complications: No Block Receding Appropriately: Not Applicable Patient on Ventilator: No
[2020-01-03] MEDS: INSULIN LISPRO 100 UNIT/ML VIAL 3 mL SUB-Q SCH ×3 (08:13→18:18)
[2020-01-03] MEDS: PIPERACIL/TAZOBACTA 4.5/NS 100 4.5 GM/100 ML VIAL IV SCH ×2 (09:20→18:15)
[2020-01-03] MEDS: HYDROmorphone 1 MG/1 ML INJ IV PRN ×3 (09:23→17:55)
[2020-01-03] MEDS: FAMOTIDINE 20 MG/2 ML INJ IV SCH (09:23)
[2020-01-03] MEDS: metroNIDAZOLE/NS 500 MG/100 ML 500 MG/100 ML BAG IV SCH ×2 (09:30→14:00)
[2020-01-03] MEDS: HEPARIN 5,000 UNIT/1 ML VIAL SUB-Q SCH (09:34)
[2020-01-03 11:02] LABS: BUN/Creatinine Ratio 8; Blood Urea Nitrogen 8 mg/dL (7-17); Calcium 7.9 mg/dL (8.4-10.2); Hemolysis Index 3
[2020-01-03] MEDS ORDERED: PHENOL 1.4% 177 ML BOTTLE MM PRN (12:47)
--- NOTE | 2020-01-03 15:12 | Event Note ---
Date: 01/03/20 Patient seen and evaluated postoperatively. Patient resting comfortably in bed. NG tube in place. Patient denies pain. Patient counseled regarding incentive spirometry, supportive care.
[2020-01-03] MEDS: SODIUM CHLORIDE 0.9% 1000 ML 1,000 ML IV SCH (20:00)
[2020-01-04] MEDS: metroNIDAZOLE/NS 500 MG/100 ML 500 MG/100 ML BAG IV SCH ×2 (01:20→06:47)
[2020-01-04] MEDS: ONDANSETRON 4 MG/2 ML INJ IV PRN ×3 (01:21→18:30)
[2020-01-04] MEDS: FAMOTIDINE 20 MG/2 ML INJ IV SCH ×3 (01:21→21:49)
[2020-01-04] MEDS: HEPARIN 5,000 UNIT/1 ML VIAL SUB-Q SCH ×3 (01:21→21:49)
[2020-01-04] MEDS: HYDROmorphone 1 MG/1 ML INJ IV PRN ×4 (01:22→18:39)
[2020-01-04] MEDS: INSULIN LISPRO 100 UNIT/ML VIAL 3 mL SUB-Q SCH ×4 (01:41→17:28)
[2020-01-04] MEDS: PIPERACIL/TAZOBACTA 4.5/NS 100 4.5 GM/100 ML VIAL IV SCH ×3 (02:35→17:28)
[2020-01-04 05:39] LABS: Basophils % (Auto) 0.5 % (0.0-1.8); Eosinophils # (Auto) 0.1 K/mm3 (0.0-0.4); Eosinophils % (Auto) 1.4 % (0.0-4.3); Hematocrit 33.6 % (30.3-42.9); Hemoglobin 11.6 gm/dl (10.1-14.3); Lymphocytes # (Auto) 1.5 K/mm3 (1.2-5.4); Lymphocytes % (Auto) 28.7 % (13.4-35.0); Mean Corpuscular HGB Conc 35 % (30-34); Mean Corpuscular Volume 86 fl (79-97); Monocytes # (Auto) 0.7 K/mm3 (0.0-0.8); Monocytes % (Auto) 13.5 % (0.0-7.3); Platelet Count 254 K/mm3 (140-440); Red Cell Distribution Width 13.1 % (13.2-15.2)
[2020-01-04 06:35] LABS: Alanine Aminotransferase 34 units/L (7-56); Albumin 3.1 g/dL (3.9-5); BUN/Creatinine Ratio 9; Blood Urea Nitrogen 9 mg/dL (7-17); Calcium 7.8 mg/dL (8.4-10.2); Hemolysis Index 0
[2020-01-04] MEDS: SODIUM CHLORIDE 0.9% 1000 ML 1,000 ML IV SCH (10:11)
[2020-01-04] MEDS: METOCLOPRAMIDE 10 MG/2 ML INJ IV PRN (13:15)
--- NOTE | 2020-01-04 13:50 | Progress Note ---
Subjective - Subjective Date of service: 01/04/20 Principal diagnosis: Acute bowel evisceration after operative laparoscopy Interval history: POD#2 At bedside, pt AAOx3 NG tube in place: pt having intermittent nausea pt indicates she is having pain VSS PE: incision c/d/i dressing in place ABD: benign,soft,NT LAbs stable Plan: supportive care pain meds, IV fluids, antiemetics will continue to follow intraoperative and postoperative complication reviewed in detail with patient Airam Kaur MD Objective - Vital Signs Latest vital signs: Vital Signs Temp Pulse Pulse Pulse Resp Resp BP 01/04/20 10:00 18 01/04/20 08:31 100.0 F H 101 H 18 164/92 01/04/20 04:29 99.3 F 98 H 18 152/85 01/04/20 03:28 18 01/04/20 01:52 16 01/04/20 01:22 16 01/03/20 23:43 99.3 F 106 H 18 157/85 01/03/20 22:47 103 H 103 H 18 01/03/20 19:27 99.9 F H 103 H 19 139/73 01/03/20 18:25 18 01/03/20 16:26 98 H 01/03/20 15:31 99.0 F 103 H 18 144/77 01/03/20 15:00 103 H Pulse Ox 01/04/20 10:00 98 01/04/20 08:31 97 01/04/20 04:29 97 01/04/20 03:28 01/04/20 01:52 01/04/20 01:22 01/03/20 23:43 100 01/03/20 22:47 98 01/03/20 19:27 98 01/03/20 18:25 01/03/20 16:26 100 01/03/20 15:31 99 01/03/20 15:00 Intake and Output 01/03/20 01/04/20 01/04/20 23:59 07:59 15:59 Intake Total 110 1210 Output Total 700 Balance 110 510 Intake: IV 110 1210 FLAGYL 500 MG/100 ML 500 100 mg In 100 ml @ 100 mls/hr IV Q8HR [facility] Rx#: [id number] Left Antecubital 10 10 NaCl 0.9% 1000 ml 1,000 1000 ml @ 100 mls/hr IV DIRECT [facility] Rx#:[id number] ZOSYN/NS 4.5GM/100ML 4.5 100 100 gm In 100 ml @ 200 mls/hr IV Q8H [facility] Rx#:[id number] Oral 0 Output: Urine 700 Indwelling Catheter 700 Other: Total, Intake Amount 0 Total, Output Amount 700 Voiding Method Indwelling Catheter Indwelling Catheter Weight 105.2 kg Patient Weight 01/04/20 23:59 Weight 105.2 kg - Labs Labs: Abnormal lab results 01/03/20 01/04/20 01/04/20 Range/Units 15:48 00:58 04:50 MCHC 35 H (30-34) % RDW 13.1 L (13.2-15.2) % [place] % (Auto) 13.5 H (0.0-7.3) % Potassium (3.6-5.0) mmol/L Glucose (65-100) mg/dL POC Glucose 241 H 202 H (70-105) mg/dL Calcium (8.4-10.2) mg/dL Total Protein (6.3-8.2) g/dL Albumin (3.9-5) g/dL 01/04/20 01/04/20 01/04/20 Range/Units 04:50 07:12 12:18 MCHC (30-34) % RDW (13.2-15.2) % [place] % (Auto) (0.0-7.3) % Potassium 3.5 L (3.6-5.0) mmol/L Glucose 214 H (65-100) mg/dL POC Glucose 182 H 188 H (70-105) mg/dL Calcium 7.8 L (8.4-10.2) mg/dL Total Protein 5.8 L (6.3-8.2) g/dL Albumin 3.1 L (3.9-5) g/dL
--- NOTE | 2020-01-04 18:13 | Progress Note ---
Assessment and Plan - Patient Problems (1) Strangulated hernia of abdominal wall Current Visit: Yes Status: Acute Plan to address problem: 1) OOB qid 2) AXR in the am 3) Strict I's and O's 4) CBC and BMP in the am Subjective Date of service: 01/04/20 Patient Reports: Positive: no new complaints, feels better, no flatus (Has not gotten OOB.), no bowel movement Objective Vital Signs - 12hr 01/04/20 01/04/20 01/04/20 08:31 10:00 16:42 Temperature 100.0 F H 98.7 F Pulse Rate 101 H 92 H Respiratory 18 18 18 Rate Blood Pressure 164/92 163/94 O2 Sat by Pulse 97 98 96 Oximetry - Abdomen soft, bowel sounds hypoactive (Appropriately TTP. Dressing is dry.) - Labs 01/04/20 04:50 01/04/20 04:50 Diabetes panel 01/04/20 Range/Units 04:50 Sodium 141 (137-145) mmol/L Potassium 3.5 L (3.6-5.0) mmol/L Chloride 106.2 (98-107) mmol/L Carbon Dioxide 27 (22-30) mmol/L BUN 9 (7-17) mg/dL Creatinine 1.0 (0.6-1.2) mg/dL Glucose 214 H (65-100) mg/dL Calcium 7.8 L (8.4-10.2) mg/dL AST 20 (5-40) units/L ALT 34 (7-56) units/L Alkaline Phosphatase 63 (35-129) units/L Total Protein 5.8 L (6.3-8.2) g/dL Albumin 3.1 L (3.9-5) g/dL Calcium panel 01/04/20 Range/Units 04:50 Calcium 7.8 L (8.4-10.2) mg/dL Albumin 3.1 L (3.9-5) g/dL Pituitary panel 01/04/20 Range/Units 04:50 Sodium 141 (137-145) mmol/L Potassium 3.5 L (3.6-5.0) mmol/L Chloride 106.2 (98-107) mmol/L Carbon Dioxide 27 (22-30) mmol/L BUN 9 (7-17) mg/dL Creatinine 1.0 (0.6-1.2) mg/dL Glucose 214 H (65-100) mg/dL Calcium 7.8 L (8.4-10.2) mg/dL Adrenal panel 01/04/20 Range/Units 04:50 Sodium 141 (137-145) mmol/L Potassium 3.5 L (3.6-5.0) mmol/L Chloride 106.2 (98-107) mmol/L Carbon Dioxide 27 (22-30) mmol/L BUN 9 (7-17) mg/dL Creatinine 1.0 (0.6-1.2) mg/dL Glucose 214 H (65-100) mg/dL Calcium 7.8 L (8.4-10.2) mg/dL Total Bilirubin 0.50 (0.1-1.2) mg/dL AST 20 (5-40) units/L ALT 34 (7-56) units/L Alkaline Phosphatase 63 (35-129) units/L Total Protein 5.8 L (6.3-8.2) g/dL Albumin 3.1 L (3.9-5) g/dL - Imaging Additional Studies: Unable to determine NG output from nursing notes.
--- NOTE | 2020-01-04 20:33 | Progress Note ---
Assessment and Plan - Patient Problems (1) Evisceration of bowel Current Visit: Yes Status: Acute Plan to address problem: Surgical team consulted. Patient is status post surgical intervention. Supportive care, early ambulation. Incentive spirometry, out of bed to chair 3 times daily and as needed, ambulation 3 times daily and as needed. Pulmonary toilet. Pain control. (2) Strangulated hernia of abdominal wall Current Visit: Yes Status: Acute Plan to address problem: Patient status post surgical intervention, further care as per surgical team. Continue medical management. (3) Hypertension Current Visit: Yes Status: Acute Qualifiers: Hypertension type: essential hypertension Qualified Code(s): I10 - Essential (primary) hypertension Plan to address problem: Monitor blood pressure every shift, continue medical management. (4) Diabetes Current Visit: Yes Status: Acute Plan to address problem: Consistent carbohydrate diet, sliding scale insulin therapy, Accu-Chek, hypoglycemia protocol. (5) Obesity hypoventilation syndrome Current Visit: Yes Status: Acute Plan to address problem: Balanced diet, increase physical activity at discharge, supplemental oxygen, pulse oximetry, noninvasive positive pressure ventilation as clinically indicated, since symptoms promptly. (6) DVT prophylaxis Current Visit: Yes Status: Acute Plan to address problem: SCD to bilateral lower extremities while in bed, patient is ambulatory. History Interval history: 39-year-old female HD #2 diabetes, hypertension, epilepsy, narcolepsy with bowel evisceration complicated by peritonitis. Patient status post surgical intervention. Patient lying in bed. Patient acknowledges abdominal wall pain. Patient pain is appropriate. No reported nursing events. Patient counseled r egarding incentive spirometry, early ambulation. Patient knowledges understanding instructions. Hospitalist Physical - Constitutional Vitals: Temp Pulse Resp BP Pulse Ox 98.7 F 92 H 18 163/94 96 01/04/20 16:42 01/04/20 16:42 01/04/20 16:42 01/04/20 16:42 01/04/20 16:42 General appearance: Present: severe distress, well-nourished, obese - EENT Eyes: Present: PERRL, EOM intact ENT: hearing intact - Neck Neck: Present: supple - Respiratory Respiratory: bilateral: diminished - Cardiovascular Rhythm: regular Heart Sounds: Present: S1 & S2 - Extremities Extremities: no ischemia Peripheral Pulses: within normal limits - Abdominal General gastrointestinal: soft, non-distended, other (Appropriately tender) - Integumentary Integumentary: Present: clear, dry - Psychiatric Psychiatric: appropriate mood/affect, cooperative - Neurologic Neurologic: CNII-XII intact Results - Labs CBC & Chem 7: 01/04/20 04:50 01/04/20 04:50 Labs: Laboratory Last Values WBC 5.2 K/mm3 (4.5-11.0) 01/04/20 04:50 RBC 3.90 M/mm3 (3.65-5.03) 01/04/20 04:50 Hgb 11.6 gm/dl (10.1-14.3) 01/04/20 04:50 Hct 33.6 % (30.3-42.9) 01/04/20 04:50 MCV 86 fl (79-97) 01/04/20 04:50 MCH 30 pg (28-32) 01/04/20 04:50 MCHC 35 % (30-34) H 01/04/20 04:50 RDW 13.1 % (13.2-15.2) L 01/04/20 04:50 Plt Count 254 K/mm3 (140-440) 01/04/20 04:50 Lymph % (Auto) 28.7 % (13.4-35.0) 01/04/20 04:50 [place] % (Auto) 13.5 % (0.0-7.3) H 01/04/20 04:50 Eos % (Auto) 1.4 % (0.0-4.3) 01/04/20 04:50 Baso % (Auto) 0.5 % (0.0-1.8) 01/04/20 04:50 Lymph # (Auto) 1.5 K/mm3 (1.2-5.4) 01/04/20 04:50 [place] # (Auto) 0.7 K/mm3 (0.0-0.8) 01/04/20 04:50 Eos # (Auto) 0.1 K/mm3 (0.0-0.4) 01/04/20 04:50 Baso # (Auto) 0.0 K/mm3 (0.0-0.1) 01/04/20 04:50 Seg Neutrophils % 55.9 % (40.0-70.0) 01/04/20 04:50 Seg Neutrophils # 2.9 K/mm3 (1.8-7.7) 01/04/20 04:50 Sodium 141 mmol/L (137-145) 01/04/20 04:50 Potassium 3.5 mmol/L (3.6-5.0) L 01/04/20 04:50 Chloride 106.2 mmol/L (98-107) 01/04/20 04:50 Carbon Dioxide 27 mmol/L (22-30) 01/04/20 04:50 Anion Gap 11 mmol/L 01/04/20 04:50 BUN 9 mg/dL (7-17) 01/04/20 04:50 Creatinine 1.0 mg/dL (0.6-1.2) 01/04/20 04:50 Estimated GFR > 60 ml/min 01/04/20 04:50 BUN/Creatinine Ratio 9 % 01/04/20 04:50 Glucose 214 mg/dL (65-100) H 01/04/20 04:50 POC Glucose 180 mg/dL (70-105) H 01/04/20 16:57 Hemoglobin A1c 12.4 % (4-6) H 01/03/20 10:11 Calcium 7.8 mg/dL (8.4-10.2) L 01/04/20 04:50 Total Bilirubin 0.50 mg/dL (0.1-1.2) 01/04/20 04:50 AST 20 units/L (5-40) 01/04/20 04:50 ALT 34 units/L (7-56) 01/04/20 04:50 Alkaline Phosphatase 63 units/L (35-129) 01/04/20 04:50 Total Protein 5.8 g/dL (6.3-8.2) L 01/04/20 04:50 Albumin 3.1 g/dL (3.9-5) L 01/04/20 04:50 Albumin/Globulin Ratio 1.1 % 01/04/20 04:50 Blood Type A POSITIVE 01/03/20 01:50 Antibody Screen Negative 01/03/20 01:50 [place]/IV: Voiding Method Indwelling Catheter IV Catheter Type [Right INT / Saline Lock Antecubital] IV Catheter Type [Left INT / Saline Lock Antecubital] Active Medications - Current Medications Current Medications: Generic Name Dose Route Start Last Admin Trade Name Freq PRN Reason Stop Dose Admin Acetaminophen 650 mg 01/03/20 06:32 Tylenol PO Q4H PRN Pain MILD(1-3)/Fever >100.5/BLACKMON Albuterol 2.5 mg 01/03/20 06:35 Proventil IH Q4HRT PRN Dyspnea Clonidine HCl 0.1 mg 01/03/20 07:00 01/03/20 09:32 Catapres-Tts Patch TD 0.1 mg Schofield JAME Administration Famotidine 20 mg 01/03/20 10:00 01/04/20 09:16 Pepcid IV 20 mg BID JAME Administration Heparin Sodium (Porcine) 5,000 unit 01/03/20 10:00 01/04/20 09:19 Heparin SUB-Q 5,000 unit Q12HR JAME Administration Hydromorphone HCl 1 mg 01/03/20 06:32 01/04/20 18:39 Dilaudid IV 1 mg Q3H PRN Administration Pain , Severe (7-10) Piperacillin Sod/Tazobactam Sod 4.5 gm in 100 mls @ 200 mls/hr 01/03/20 10:00 01/04/20 17:28 Zosyn/Ns 4.5gm/100ml IV 01/08/20 02:29 200 mls/hr Q8H JAME Administration Protocol Sodium Chloride 1,000 mls @ 100 mls/hr 01/03/20 06:45 01/04/20 10:11 Nacl 0.9% 1000 Ml IV 100 mls/hr DIRECT JAME Administration Insulin Human Lispro 0 unit 01/03/20 07:00 01/04/20 17:28 Humalog SUB-Q 3 unit Q6HR JAME Administration Protocol Metoclopramide HCl 10 mg 01/03/20 06:32 01/04/20 13:15 Reglan IV 10 mg Q6H PRN Administration Nausea And Vomiting Ondansetron HCl 4 mg 01/03/20 06:32 01/04/20 18:30 Zofran IV 4 mg Q3H PRN Administration Nausea And Vomiting Phenol 1 spray 01/03/20 12:47 01/03/20 14:00 Chloraseptic MM 1 spray PRN PRN Administration Sore Throat Sodium Chloride 10 ml 01/03/20 10:00 01/04/20 10:11 Sodium Chloride Flush Syringe 10 Ml IV 10 ml BID JAME Administration Sodium Chloride 10 ml 01/03/20 06:32 Sodium Chloride Flush Syringe 10 Ml IV PRN PRN LINE FLUSH
[2020-01-05] MEDS: INSULIN LISPRO 100 UNIT/ML VIAL 3 mL SUB-Q SCH ×4 (00:05→17:36)
[2020-01-05] MEDS: SODIUM CHLORIDE 0.9% 1000 ML 1,000 ML IV SCH ×2 (00:08→07:59)
[2020-01-05] MEDS: PIPERACIL/TAZOBACTA 4.5/NS 100 4.5 GM/100 ML VIAL IV SCH ×3 (02:21→17:35)
[2020-01-05] MEDS: HYDROmorphone 1 MG/1 ML INJ IV PRN ×2 (02:28→10:42)
[2020-01-05] MEDS: METOCLOPRAMIDE 10 MG/2 ML INJ IV PRN ×2 (02:28→09:34)
[2020-01-05 08:08] LABS: Basophils % (Auto) 0.4 % (0.0-1.8); Eosinophils # (Auto) 0.1 K/mm3 (0.0-0.4); Eosinophils % (Auto) 2.1 % (0.0-4.3); Hematocrit 32.2 % (30.3-42.9); Hemoglobin 11.7 gm/dl (10.1-14.3); Lymphocytes # (Auto) 1.9 K/mm3 (1.2-5.4); Mean Corpuscular HGB Conc 36 % (30-34); Mean Corpuscular Volume 85 fl (79-97); Monocytes # (Auto) 0.9 K/mm3 (0.0-0.8); Monocytes % (Auto) 15.8 % (0.0-7.3); Platelet Count 262 K/mm3 (140-440); Red Blood Count 3.78 M/mm3 (3.65-5.03); Red Cell Distribution Width 13.1 % (13.2-15.2)
[2020-01-05 08:29] LABS: BUN/Creatinine Ratio 9; Blood Urea Nitrogen 7 mg/dL (7-17); Hemolysis Index 5
--- NOTE | 2020-01-05 09:18 | XRay Report ---
ABDOMEN 2 VIEW(S) INDICATION / CLINICAL INFORMATION: sbo. COMPARISON: Abdominal ultrasound 08/12/2015 FINDINGS: TUBES / LINES: Gastric tube crosses the gastroesophageal junction and terminates in the right upper q uadrant overlying the gastric bubble. BOWEL GAS PATTERN: Moderately distended/mildly dilated small bowel loops throughout the mid abdomen c ould represent early/partial obstruction or adynamic ileus. FREE AIR / EXTRALUMINAL GAS: None seen. ADDITIONAL FINDINGS: No significant additional findings. CHEST: Visualized chest shows no significant abnormality. IMPRESSION: 1. Moderately distended/mildly dilated small bowel loops could represent early/partial bowel obstruct ion or adynamic ileus. Gastric tube demonstrates satisfactory positioning. Signer Name: Luis Alfredo Mac MD Signed: 01/05/2020 9:13 AM Workstation Name: [id number]
[2020-01-05] MEDS: FAMOTIDINE 20 MG/2 ML INJ IV SCH ×2 (09:34→21:48)
[2020-01-05] MEDS: HEPARIN 5,000 UNIT/1 ML VIAL SUB-Q SCH ×2 (09:39→21:48)
--- NOTE | 2020-01-05 09:50 | Progress Note ---
Assessment and Plan - Patient Problems (1) Strangulated hernia of abdominal wall Current Visit: Yes Status: Acute Plan to address problem: 1) Continue NG to LIS 2) Ambulate in halls 3) AXR, CBC and BMP in the am Subjective Date of service: 01/05/20 Patient Reports: Positive: no new complaints, no flatus, no bowel movement Objective Vital Signs - 12hr 01/04/20 01/04/20 01/05/20 23:00 23:27 03:28 Temperature 99.9 F H 98.9 F Pulse Rate 92 H 92 H Respiratory 18 18 Rate Blood Pressure 151/67 153/78 O2 Sat by Pulse 95 Oximetry 01/05/20 08:15 Temperature 98.6 F Pulse Rate 84 Respiratory 20 Rate Blood Pressure 185/104 O2 Sat by Pulse 95 Oximetry - Abdomen soft, bowel sounds hypoactive (non-distended; Minimally tender around incision.) - Labs 01/05/20 07:01 01/05/20 07:01 Diabetes panel 01/05/20 Range/Units 07:01 Sodium 142 (137-145) mmol/L Potassium 3.6 (3.6-5.0) mmol/L Chloride 105.6 (98-107) mmol/L Carbon Dioxide 24 (22-30) mmol/L BUN 7 (7-17) mg/dL Creatinine 0.8 (0.6-1.2) mg/dL Glucose 151 H (65-100) mg/dL Calcium 8.0 L (8.4-10.2) mg/dL Calcium panel 01/05/20 Range/Units 07:01 Calcium 8.0 L (8.4-10.2) mg/dL Pituitary panel 01/05/20 Range/Units 07:01 Sodium 142 (137-145) mmol/L Potassium 3.6 (3.6-5.0) mmol/L Chloride 105.6 (98-107) mmol/L Carbon Dioxide 24 (22-30) mmol/L BUN 7 (7-17) mg/dL Creatinine 0.8 (0.6-1.2) mg/dL Glucose 151 H (65-100) mg/dL Calcium 8.0 L (8.4-10.2) mg/dL Adrenal panel 01/05/20 Range/Units 07:01 Sodium 142 (137-145) mmol/L Potassium 3.6 (3.6-5.0) mmol/L Chloride 105.6 (98-107) mmol/L Carbon Dioxide 24 (22-30) mmol/L BUN 7 (7-17) mg/dL Creatinine 0.8 (0.6-1.2) mg/dL Glucose 151 H (65-100) mg/dL Calcium 8.0 L (8.4-10.2) mg/dL - Imaging Additional Studies: AXR of today reviewed and report read.
[2020-01-05] MEDS ORDERED: hydrALAZINE 20 MG/1 ML INJ IV PRN (10:07)
--- NOTE | 2020-01-05 14:13 | Progress Note ---
Subjective - Subjective Date of service: 01/05/20 Principal diagnosis: Acute bowel evisceration after operative laparoscopy Interval history: POD#3 At bedside, pt AAOx3 NG tube in place: pt having intermittent nausea though she admits pain and nausea have improved +ve flatus ambulating in hallway without difficulty pt indicates depressin and adjustment difficulty related to bowel evisceration, asking for mental health consult VSS PE: incision c/d/i dressing in place ABD: benign,soft,NT Casillas to gravitiy: adequate urine output LAbs stable Plan: supportive care pain meds, IV fluids, antiemetics will continue to follow intraoperative and postoperative complication again reviewed in detail with patient Airam Kaur MD Objective - Vital Signs Latest vital signs: Vital Signs Temp Pulse Resp BP Pulse Ox 01/05/20 09:51 98.3 F 86 H 174/96 01/05/20 08:15 98.6 F 84 20 185/104 95 01/05/20 03:28 98.9 F 92 H 18 153/78 95 01/04/20 23:27 99.9 F H 18 151/67 01/04/20 23:00 92 H 01/04/20 19:29 99.8 F H 88 18 169/88 92 01/04/20 16:42 98.7 F 92 H 18 163/94 96 Intake and Output 01/04/20 01/05/20 01/05/20 23:59 07:59 15:59 Intake Total 1100 885 0 Output Total 1100 650 900 Balance 0 235 -900 Intake: IV 1100 885 NaCl 0.9% 1000 ml 1,000 1000 785 ml @ 100 mls/hr IV DIRECT JMAE Rx#:[id number] ZOSYN/NS 4.5GM/100ML 4.5 100 100 gm In 100 ml @ 200 mls/hr IV Q8H JAME Rx#:[id number] Oral 0 Intake, Free Water 0 Output: Gastric Drainage 300 350 Right Nare 350 Urine 800 300 900 Indwelling Catheter 600 200 Uretheral (Cas[place]) 200 300 300 Other: Total, Intake Amount 0 Total, Output Amount 300 200 Voiding Method Indwelling Catheter Indwelling Catheter # Bowel Movements 0 Weight 102.4 kg Patient Weight 01/05/20 23:59 Weight 102.4 kg - Labs Labs: Abnormal lab results 01/04/20 01/05/20 01/05/20 Range/Units 16:57 00:09 06:47 MCHC (30-34) % RDW (13.2-15.2) % [place] % (Auto) (0.0-7.3) % [place] # (Auto) (0.0-0.8) K/mm3 Glucose (65-100) mg/dL POC Glucose 180 H 166 H 144 H (70-105) mg/dL Calcium (8.4-10.2) mg/dL 01/05/20 01/05/20 01/05/20 Range/Units 07:01 07:01 12:42 MCHC 36 H (30-34) % RDW 13.1 L (13.2-15.2) % [place] % (Auto) 15.8 H (0.0-7.3) % [place] # (Auto) 0.9 H (0.0-0.8) K/mm3 Glucose 151 H (65-100) mg/dL POC Glucose 208 H (70-105) mg/dL Calcium 8.0 L (8.4-10.2) mg/dL
--- NOTE | 2020-01-05 17:27 | Progress Note ---
Assessment and Plan Assessment and plan: 39-year-old female HD #2 diabetes, hypertension, epilepsy, narcolepsy with bowel evisceration complicated by peritonitis. Patient status post surgical intervention. Patient lying in bed. Patient acknowledges abdominal wall pain. Patient pain is appropriate. No reported nursing events. Patient counseled regarding incentive spirometry, early ambulation. Patient knowledges understanding instructions. 01/04: Await gas OR BOWEL movement. Discussed with surgery, and will plan discontinued NGT once gas or BM and start clear liquid at that time. (1) Evisceration of bowel Current Visit: Yes Status: Acute Plan to address problem: Surgical team consulted. Patient is status post surgical intervention. Supportive care, early ambulation. Incentive spirometry, out of bed to chair 3 times daily and as needed, ambulation 3 times daily and as needed. Pulmonary toilet. Pain control. (2) Strangulated hernia of abdominal wall Current Visit: Yes Status: Acute Plan to address problem: Patient status post surgical intervention, further care as per surgical team. Continue medical management. (3) Hypertension Current Visit: Yes Status: Acute Qualifiers: Hypertension type: essential hypertension Qualified Code(s): I10 - Essential (primary) hypertension Plan to address problem: Monitor blood pressure every shift, continue medical management. (4) Diabetes Current Visit: Yes Status: Acute Plan to address problem: Consistent carbohydrate diet, sliding scale insulin therapy, Accu-Chek, hypoglycemia protocol. (5) Obesity hypoventilation syndrome Current Visit: Yes Status: Acute Plan to address problem: Balanced diet, increase physical activity at discharge, supplemental oxygen, pulse oximetry, noninvasive positive pressure ventilation as clinically indic ated, since symptoms promptly. (6) Wound dehiscence Current Visit: Yes Status: Acute Plan to address problem: Patient being taken to operating room for emergency surgery Dr. Eaton is the surgeon Surgery consult appreciated (7) Left ovarian cyst Current Visit: No Status: Chronic Plan to address problem: Patient had cystectomy Now postop patient has complications (8) DVT prophylaxis Current Visit: Yes Status: Acute Plan to address problem: SCD to bilateral lower extremities while in bed, patient is ambulatory. History Interval history: Patient seen and examined, still with nasuea, NGT in place, no BM or gas yet but states she feels some gas. Hospitalist Physical - Physical exam Narrative exam: General appearance: Present: severe distress, well-nourished, obese - EENT Eyes: Present: PERRL, EOM intact ENT: hearing intact - Neck Neck: Present: supple - Respiratory Respiratory: bilateral: diminished - Cardiovascular Rhythm: regular Heart Sounds: Present: S1 & S2 - Extremities Extremities: no ischemia Peripheral Pulses: within normal limits - Abdominal General gastrointestinal: incision c/d/i dressing in place, soft, non- distended, other (Appropriately tender) - Integumentary Integumentary: Present: clear, dry, Casillas to gravitiy: adequate urine output - Psychiatric Psychiatric: appropriate mood/affect, cooperative - Neurologic Neurologic: CNII-XII intact - Constitutional Vitals: Temp Pulse Resp BP Pulse Ox 98.0 F 86 18 156/90 93 01/05/20 15:44 01/05/20 15:44 01/05/20 15:44 01/05/20 15:44 01/05/20 15:44 General appearance: Present: severe distress, well-nourished, obese Results - Labs CBC & Chem 7: 01/05/20 07:01 01/05/20 07:01 Labs: Laboratory Last Values WBC 5.5 K/mm3 (4.5-11.0) 01/05/20 07:01 RBC 3.78 M/mm3 (3.65-5.03) 01/05/20 07:01 Hgb 11.7 gm/dl (10.1-14.3) 01/05/20 07:01 Hct 32.2 % (30.3-42.9) 01/05/20 07:01 MCV 85 fl (79-97) 01/05/20 07:01 MCH 31 pg (28-32) 01/05/20 07:01 MCHC 36 % (30-34) H 01/05/20 07:01 RDW 13.1 % (13.2-15.2) L 01/05/20 07:01 Plt Count 262 K/mm3 (140-440) 01/05/20 07:01 Lymph % (Auto) 34.0 % (13.4-35.0) 01/05/20 07:01 [place] % (Auto) 15.8 % (0.0-7.3) H 01/05/20 07:01 Eos % (Auto) 2.1 % (0.0-4.3) 01/05/20 07:01 Baso % (Auto) 0.4 % (0.0-1.8) 01/05/20 07:01 Lymph # (Auto) 1.9 K/mm3 (1.2-5.4) 01/05/20 07:01 [place] # (Auto) 0.9 K/mm3 (0.0-0.8) H 01/05/20 07:01 Eos # (Auto) 0.1 K/mm3 (0.0-0.4) 01/05/20 07:01 Baso # (Auto) 0.0 K/mm3 (0.0-0.1) 01/05/20 07:01 Seg Neutrophils % 47.7 % (40.0-70.0) 01/05/20 07:01 Seg Neutrophils # 2.6 K/mm3 (1.8-7.7) 01/05/20 07:01 Sodium 142 mmol/L (137-145) 01/05/20 07:01 Potassium 3.6 mmol/L (3.6-5.0) 01/05/20 07:01 Chloride 105.6 mmol/L (98-107) 01/05/20 07:01 Carbon Dioxide 24 mmol/L (22-30) 01/05/20 07:01 Anion Gap 16 mmol/L 01/05/20 07:01 BUN 7 mg/dL (7-17) 01/05/20 07:01 Creatinine 0.8 mg/dL (0.6-1.2) 01/05/20 07:01 Estimated GFR > 60 ml/min 01/05/20 07:01 BUN/Creatinine Ratio 9 % 01/05/20 07:01 Glucose 151 mg/dL (65-100) H 01/05/20 07:01 POC Glucose 195 mg/dL (70-105) H 01/05/20 15:59 Hemoglobin A1c 12.4 % (4-6) H 01/03/20 10:11 Calcium 8.0 mg/dL (8.4-10.2) L 01/05/20 07:01 Total Bilirubin 0.50 mg/dL (0.1-1.2) 01/04/20 04:50 AST 20 units/L (5-40) 01/04/20 04:50 ALT 34 units/L (7-56) 01/04/20 04:50 Alkaline Phosphatase 63 units/L (35-129) 01/04/20 04:50 Total Protein 5.8 g/dL (6.3-8.2) L 01/04/20 04:50 Albumin 3.1 g/dL (3.9-5) L 01/04/20 04:50 Albumin/Globulin Ratio 1.1 % 01/04/20 04:50 Blood Type A POSITIVE 01/03/20 01:50 Antibody Screen Negative 01/03/20 01:50 [place]/IV: Voiding Method Indwelling Catheter IV Catheter Type [Right INT / Saline Lock Antecubital] IV Catheter Type [Left INT / Saline Lock Antecubital] Active Medications - Current Medications Current Medications: Generic Name Dose Route Start Last Admin Trade Name Freq PRN Reason Stop Dose Admin Acetaminophen 650 mg 01/03/20 06:32 Tylenol PO Q4H PRN Pain MILD(1-3)/Fever >100.5/BLACKMON Albuterol 2.5 mg 01/03/20 06:35 Proventil IH Q4HRT PRN Dyspnea Clonidine HCl 0.1 mg 01/03/20 07:00 01/03/20 09:32 Catapres-Tts Patch TD 0.1 mg Schofield JAME Administration Famotidine 20 mg 01/03/20 10:00 01/05/20 09:34 Pepcid IV 20 mg BID JAME Administration Heparin Sodium (Porcine) 5,000 unit 01/03/20 10:00 01/05/20 09:39 Heparin SUB-Q 5,000 unit Q12HR JAME Administration Hydralazine HCl 10 mg 01/05/20 10:07 Apresoline IV Q4HR PRN Hypertension Hydromorphone HCl 1 mg 01/03/20 06:32 01/05/20 10:42 Dilaudid IV 1 mg Q3H PRN Administration Pain , Severe (7-10) Piperacillin Sod/Tazobactam Sod 4.5 gm in 100 mls @ 200 mls/hr 01/03/20 10:00 01/05/20 09:33 Zosyn/Ns 4.5gm/100ml IV 01/08/20 02:29 200 mls/hr Q8H JAME Administration Protocol Sodium Chloride 1,000 mls @ 100 mls/hr 01/03/20 06:45 01/05/20 07:59 Nacl 0.9% 1000 Ml IV 100 mls/hr DIRECT JAME Administration Insulin Human Lispro 0 unit 01/03/20 07:00 01/05/20 12:50 Humalog SUB-Q 4 unit Q6HR JAME Administration Protocol Metoclopramide HCl 10 mg 01/03/20 06:32 01/05/20 09:34 Reglan IV 10 mg Q6H PRN Administration Nausea And Vomiting Ondansetron HCl 4 mg 01/03/20 06:32 01/04/20 18:30 Zofran IV 4 mg Q3H PRN Administration Nausea And Vomiting Phenol 1 spray 01/03/20 12:47 01/03/20 14:00 Chloraseptic MM 1 spray PRN PRN Administration Sore Throat Sodium Chloride 10 ml 01/03/20 10:00 01/05/20 12:50 Sodium Chloride Flush Syringe 10 Ml IV 10 ml BID JAME Administration Sodium Chloride 10 ml 01/03/20 06:32 Sodium Chloride Flush Syringe 10 Ml IV PRN PRN LINE FLUSH
[2020-01-06] MEDS: METOCLOPRAMIDE 10 MG/2 ML INJ IV PRN (00:07)
[2020-01-06] MEDS: HYDROmorphone 1 MG/1 ML INJ IV PRN ×3 (00:07→23:17)
[2020-01-06] MEDS: INSULIN LISPRO 100 UNIT/ML VIAL 3 mL SUB-Q SCH ×3 (00:42→18:11)
[2020-01-06] MEDS: PIPERACIL/TAZOBACTA 4.5/NS 100 4.5 GM/100 ML VIAL IV SCH ×3 (01:28→18:12)
--- NOTE | 2020-01-06 09:51 | XRay Report ---
ABDOMEN 2 VIEWS INDICATION / CLINICAL INFORMATION: ileus. COMPARISON: 01/05/20 FINDINGS: TUBES / LINES: Esophagogastric tube remains in the distal stomach. BOWEL GAS PATTERN: Mildly dilated loops of proximal small bowel are unchanged. Normal amount of fecal material and gas in the colon. FREE AIR / EXTRALUMINAL GAS: None seen. ADDITIONAL FINDINGS: Cholecystectomy clips in the right upper quadrant. CHEST: Visualized chest shows no significant abnormality. IMPRESSION: 1. No significant change. Signer Name: Leena Long MD Signed: 01/06/2020 9:46 AM Workstation Name: [id number]
--- NOTE | 2020-01-06 10:28 | Progress Note ---
Assessment and Plan - Patient Problems (1) Strangulated hernia of abdominal wall Current Visit: Yes Status: Acute Plan to address problem: 1) DC NG 2) CLD 3) Ambulate in halls qid Subjective Date of service: 01/06/20 Patient Reports: Positive: no new complaints, pain is less, bowel movement Objective Vital Signs - 12hr 01/05/20 01/06/20 01/06/20 23:34 00:07 03:58 Temperature 98.0 F 98.0 F Pulse Rate 95 H 89 Respiratory 18 18 18 Rate Blood Pressure 176/96 155/85 O2 Sat by Pulse 100 95 Oximetry 01/06/20 01/06/20 01/06/20 08:14 08:15 08:22 Temperature 99.0 F Pulse Rate 98 H 103 H Respiratory 16 Rate Blood Pressure 214/122 154/95 O2 Sat by Pulse 98 98 Oximetry - Abdomen PM_[id number]_[id number] 4, PM_46_[id number] 6, PM_46_[id number] 8 Hernia: none - Labs 01/05/20 07:01 01/05/20 07:01 - Imaging Additional Studies: AXR unchanged with cont'd mild proximal small bowel dilatation.
[2020-01-06] MEDS: HEPARIN 5,000 UNIT/1 ML VIAL SUB-Q SCH ×2 (10:58→22:19)
[2020-01-06] MEDS: FAMOTIDINE 20 MG/2 ML INJ IV SCH ×2 (10:58→23:06)
[2020-01-06 11:00] LABS: Basophils % (Auto) 0.3 % (0.0-1.8); Eosinophils % (Auto) 0.6 % (0.0-4.3); Hematocrit 39.1 % (30.3-42.9); Hemoglobin 13.3 gm/dl (10.1-14.3); Lymphocytes # (Auto) 1.9 K/mm3 (1.2-5.4); Lymphocytes % (Auto) 23.8 % (13.4-35.0); Mean Corpuscular HGB Conc 34 % (30-34); Mean Corpuscular Volume 86 fl (79-97); Monocytes # (Auto) 0.6 K/mm3 (0.0-0.8); Platelet Count 328 K/mm3 (140-440); Red Blood Count 4.57 M/mm3 (3.65-5.03); Red Cell Distribution Width 13.1 % (13.2-15.2)
[2020-01-06 11:12] LABS: BUN/Creatinine Ratio 10; Blood Urea Nitrogen 9 mg/dL (7-17); Calcium 8.6 mg/dL (8.4-10.2); Hemolysis Index 7
[2020-01-06] MEDS: SODIUM CHLORIDE 0.9% 1000 ML 1,000 ML IV SCH (11:21)
[2020-01-06] MEDS: MAGNESIUM HYDROXIDE (MOM) ORAL LIQD UDC PO SCH (11:29)
--- NOTE | 2020-01-06 15:54 | Progress Note ---
Assessment and Plan Assessment and plan: 39-year-old female HD #2 diabetes, hypertension, epilepsy, narcolepsy with bowel evisceration complicated by peritonitis. Patient status post surgical intervention. Patient lying in bed. Patient acknowledges abdominal wall pain. Patient pain is appropriate. No reported nursing events. Patient counseled regarding incentive spirometry, early ambulation. Patient knowledges understanding instructions. 01/04: Await gas OR BOWEL movement. Discussed with surgery, and will plan discontinued NGT once gas or BM and start clear liquid at that time. 01/05: Discussed with the patient, and noted Surgery input, NGT discontinued and CLD started. Encouraged ambulation. (1) Evisceration of bowel Current Visit: Yes Status: Acute Plan to address problem: Surgical team consulted. Patient is status post surgical intervention. Supportive care, early ambulation. Incentive spirometry, out of bed to chair 3 times daily and as needed, ambulation 3 times daily and as needed. Pulmonary toilet. Pain control. (2) Strangulated hernia of abdominal wall Current Visit: Yes Status: Acute Plan to address problem: Patient status post surgical intervention, further care as per surgical team. Continue medical management. (3) Hypertension Current Visit: Yes Status: Acute Qualifiers: Hypertension type: essential hypertension Qualified Code(s): I10 - Essential (primary) hypertension Plan to address problem: Monitor blood pressure every shift, continue medical management. (4) Diabetes Current Visit: Yes Status: Acute Plan to address problem: Consistent carbohydrate diet, sliding scale insulin therapy, Accu-Chek, hypoglycemia protocol. (5) Obesity hypoventilation syndrome Current Visit: Yes Status: Acute Plan to address problem: Balanced diet, increase physical activity at discharge, supplemental oxygen, pulse oximetry, noninvasive positive pressure ventilation as clinically indicated, since symptoms promptly. (6) Wound dehiscence Current Visit: Yes Status: Acute Plan to address problem: Patient being taken to operating room for emergency surgery Dr. Eaton is the surgeon Surgery consult appreciated (7) Left ovarian cyst Current Visit: No Status: Chronic Plan to address problem: Patient had cystectomy Now postop patient has complications (8) DVT prophylaxis Current Visit: Yes Status: Acute Plan to address problem: SCD to bilateral lower extremities while in bed, patient is ambulatory. History Interval history: Patient seen and examined, reports BM and Gas today Hospitalist Physical - Physical exam Narrative exam: General appearance: Present: severe distress, well-nourished, obese. ngt noted - EENT Eyes: Present: PERRL, EOM intact ENT: hearing intact - Neck Neck: Present: supple - Respiratory Respiratory: bilateral: diminished - Cardiovascular Rhythm: regular Heart Sounds: Present: S1 & S2 - Extremities Extremities: no ischemia Peripheral Pulses: within normal limits - Abdominal General gastrointestinal: incision c/d/i dressing in place, soft, non- distended, other (Appropriately tender) - Integumentary Integumentary: Present: clear, dry, Cas[place] to gravitiy: adequate urine output - Psychiatric Psychiatric: appropriate mood/affect, cooperative - Neurologic Neurologic: CNII-XII intact - Constitutional Vitals: Temp Pulse Resp BP Pulse Ox 99.0 F 103 H 16 154/95 98 01/06/20 08:14 01/06/20 08:15 01/06/20 08:14 01/06/20 08:22 01/06/20 08:15 General appearance: Present: severe distress, well-nourished, obese Results - Labs CBC & Chem 7: 01/06/20 09:45 01/06/20 09:45 Labs: Laboratory Last Values WBC 7.9 K/mm3 (4.5-11.0) 01/06/20 09:45 RBC 4.57 M/mm3 (3.65-5.03) 01/06/20 09:45 Hgb 13.3 gm/dl (10.1-14.3) 01/06/20 09:45 Hct 39.1 % (30.3-42.9) D 01/06/20 09:45 MCV 86 fl (79-97) 01/06/20 09:45 MCH 29 pg (28-32) 01/06/20 09:45 MCHC 34 % (30-34) 01/06/20 09:45 RDW 13.1 % (13.2-15.2) L 01/06/20 09:45 Plt Count 328 K/mm3 (140-440) 01/06/20 09:45 Lymph % (Auto) 23.8 % (13.4-35.0) 01/06/20 09:45 Bremer % (Auto) 7.0 % (0.0-7.3) 01/06/20 09:45 Eos % (Auto) 0.6 % (0.0-4.3) 01/06/20 09:45 Baso % (Auto) 0.3 % (0.0-1.8) 01/06/20 09:45 Lymph # (Auto) 1.9 K/mm3 (1.2-5.4) 01/06/20 09:45 Bremer # (Auto) 0.6 K/mm3 (0.0-0.8) 01/06/20 09:45 Eos # (Auto) 0.0 K/mm3 (0.0-0.4) 01/06/20 09:45 Baso # (Auto) 0.0 K/mm3 (0.0-0.1) 01/06/20 09:45 Seg Neutrophils % 68.3 % (40.0-70.0) 01/06/20 09:45 Seg Neutrophils # 5.4 K/mm3 (1.8-7.7) 01/06/20 09:45 Sodium 140 mmol/L (137-145) 01/06/20 09:45 Potassium 3.6 mmol/L (3.6-5.0) 01/06/20 09:45 Chloride 104.1 mmol/L (98-107) 01/06/20 09:45 Carbon Dioxide 18 mmol/L (22-30) L 01/06/20 09:45 Anion Gap 22 mmol/L 01/06/20 09:45 BUN 9 mg/dL (7-17) 01/06/20 09:45 Creatinine 0.9 mg/dL (0.6-1.2) 01/06/20 09:45 Estimated GFR > 60 ml/min 01/06/20 09:45 BUN/Creatinine Ratio 10 % 01/06/20 09:45 Glucose 190 mg/dL (65-100) H 01/06/20 09:45 POC Glucose 189 mg/dL (70-105) H 01/06/20 12:14 Hemoglobin A1c 12.4 % (4-6) H 01/03/20 10:11 Calcium 8.6 mg/dL (8.4-10.2) 01/06/20 09:45 Total Bilirubin 0.50 mg/dL (0.1-1.2) 01/04/20 04:50 AST 20 units/L (5-40) 01/04/20 04:50 ALT 34 units/L (7-56) 01/04/20 04:50 Alkaline Phosphatase 63 units/L (35-129) 01/04/20 04:50 Total Protein 5.8 g/dL (6.3-8.2) L 01/04/20 04:50 Albumin 3.1 g/dL (3.9-5) L 01/04/20 04:50 Albumin/Globulin Ratio 1.1 % 01/04/20 04:50 Blood Type A POSITIVE 01/03/20 01:50 Antibody Screen Negative 01/03/20 01:50 Casillas/IV: Voiding Method Toilet IV Catheter Type [Left Forearm Peripheral IV ] IV Catheter Type [Right INT / Saline Lock Antecubital] IV Catheter Type [Left INT / Saline Lock Antecubital] Active Medications - Current Medications Current Medications: Generic Name Dose Route Start Last Admin Trade Name Freq PRN Reason Stop Dose Admin Acetaminophen 650 mg 01/03/20 06:32 Tylenol PO Q4H PRN Pain MILD(1-3)/Fever >100.5/BLACKMON Albuterol 2.5 mg 01/03/20 06:35 Proventil IH Q4HRT PRN Dyspnea Clonidine HCl 0.1 mg 01/03/20 07:00 01/03/20 09:32 Catapres-Tts Patch TD 0.1 mg [place]ield JAME Administration Famotidine 20 mg 01/03/20 10:00 01/06/20 10:58 Pepcid IV 20 mg BID JAME Administration Heparin Sodium (Porcine) 5,000 unit 01/03/20 10:00 01/06/20 10:58 Heparin SUB-Q 5,000 unit Q12HR JAME Administration Hydralazine HCl 10 mg 01/05/20 10:07 01/06/20 01:28 Apresoline IV 10 mg Q4HR PRN Administration Hypertension Hydromorphone HCl 1 mg 01/03/20 06:32 01/06/20 08:31 Dilaudid IV 1 mg Q3H PRN Administration Pain , Severe (7-10) Piperacillin Sod/Tazobactam Sod 4.5 gm in 100 mls @ 200 mls/hr 01/03/20 10:00 01/06/20 11:24 Zosyn/Ns 4.5gm/100ml IV 01/08/20 02:29 200 mls/hr Q8H JAME Administration Protocol Sodium Chloride 1,000 mls @ 100 mls/hr 01/03/20 06:45 01/06/20 11:21 Nacl 0.9% 1000 Ml IV 100 mls/hr DIRECT JAME Administration Insulin Human Lispro 0 unit 01/03/20 07:00 01/06/20 13:00 Humalog SUB-Q 3 unit Q6HR JAME Administration Protocol Magnesium Hydroxide 30 ml 01/06/20 11:00 01/06/20 11:29 Milk Of Magnesia PO 30 ml QDAY JAME Administration Metoclopramide HCl 10 mg 01/03/20 06:32 01/06/20 00:07 Reglan IV 10 mg Q6H PRN Administration Nausea And Vomiting Ondansetron HCl 4 mg 01/03/20 06:32 01/04/20 18:30 Zofran IV 4 mg Q3H PRN Administration Nausea And Vomiting Phenol 1 spray 01/03/20 12:47 01/03/20 14:00 Chloraseptic MM 1 spray PRN PRN Administration Sore Throat Sodium Chloride 10 ml 01/03/20 10:00 01/06/20 10:58 Sodium Chloride Flush Syringe 10 Ml IV 10 ml BID JAME Administration Sodium Chloride 10 ml 01/03/20 06:32 Sodium Chloride Flush Syringe 10 Ml IV PRN PRN LINE FLUSH
[2020-01-06] MEDS: ONDANSETRON 4 MG/2 ML INJ IV PRN (23:17)
[2020-01-06] MEDS ORDERED: LACTULOSE 20 GM/30 ML ORAL LIQD PO PRN (23:27)
[2020-01-07] MEDS: INSULIN LISPRO 100 UNIT/ML VIAL 3 mL SUB-Q SCH ×3 (00:59→12:54)
[2020-01-07] MEDS: PIPERACIL/TAZOBACTA 4.5/NS 100 4.5 GM/100 ML VIAL IV SCH ×2 (01:05→11:28)
[2020-01-07] MEDS: METOCLOPRAMIDE 10 MG/2 ML INJ IV PRN (08:06)
[2020-01-07] MEDS: SODIUM CHLORIDE 0.9% 1000 ML 1,000 ML IV SCH (08:11)
[2020-01-07] MEDS: FAMOTIDINE 20 MG/2 ML INJ IV SCH (09:17)
[2020-01-07] MEDS: HEPARIN 5,000 UNIT/1 ML VIAL SUB-Q SCH (09:17)
[2020-01-07] MEDS: MAGNESIUM HYDROXIDE (MOM) ORAL LIQD UDC PO SCH (09:17)
--- NOTE | 2020-01-07 09:41 | Progress Note ---
Assessment and Plan d/c home follow up [employer] on one week Airam Kaur MD Subjective - Subjective Date of service: 01/07/20 Principal diagnosis: Acute bowel evisceration after operative laparoscopy Interval history: POD#5 At bedside, pt AAOx3 NG tube discontinued : nausea and pain improved, +ve flatus, +ve BM. Mood significantly improved. ambulating in hallway without difficulty VSS PE: incision c/d/i dressing in place ABD: benign,soft,NT Ins/Outs appropriate LAbs stable Plan: supportive care,advance diet pain meds, IV fluids, antiemetics plan for d/c home with appropriate follow up intraoperative and postoperative complication again reviewed in detail with patient Airam Kaur MD Patient reports: appetite normal, voiding normally, pain well controlled, ambulating normally Objective - Vital Signs Latest vital signs: Vital Signs Temp Pulse Resp BP Pulse Ox 01/07/20 07:44 98.4 F 92 H 16 139/77 98 01/07/20 05:35 94 H 18 162/95 94 01/06/20 23:53 99.1 F 97 H 18 171/85 99 01/06/20 19:33 97.9 F 93 H 20 167/86 96 01/06/20 16:04 98.4 F 86 171/96 100 01/06/20 11:41 98.4 F 82 20 169/84 98 Intake and Output 01/06/20 01/07/20 01/07/20 23:59 07:59 15:59 Intake Total 1100 Balance 1100 Intake: IV 1100 NaCl 0.9% 1000 ml 1,000 1000 ml @ 100 mls/hr IV DIRECT JAME Rx#:[id number] ZOSYN/NS 4.5GM/100ML 4.5 100 gm In 100 ml @ 200 mls/hr IV Q8H JAME Rx#:[id number] Oral 0 Other: Total, Intake Amount 0 Voiding Method Toilet # Voids Indwelling Catheter 5 - Labs Labs: Abnormal lab results 01/06/20 01/06/20 01/06/20 Range/Units 09:45 09:45 12:14 RDW 13.1 L (13.2-15.2) % Carbon Dioxide 18 L (22-30) mmol/L Glucose 190 H (65-100) mg/dL POC Glucose 189 H (70-105) mg/dL 01/06/20 01/07/20 01/07/20 Range/Units 18:15 00:12 05:55 RDW (13.2-15.2) % Carbon Dioxide (22-30) mmol/L Glucose (65-100) mg/dL POC Glucose 154 H 160 H 180 H (70-105) mg/dL
--- NOTE | 2020-01-07 10:57 | Discharge Summary ---
Providers - Providers Date of Admission: 01/03/20 01:56 Attending physician: ALIS AMBROCIO MD 01/03/20 Consult to Case Management [CONS] Routine Services Needed at Discharge: Home Health Services Notified:: case management manager 01/03/20 01:35 Consult to Physician [CONS] Stat Comment: Consulting Provider: PENG DHILLON Physician Instructions: Reason For Exam: bowel evisceration, strangulated hernia 01/03/20 01:40 Consult to Physician [CONS] Stat Comment: Consulting Provider: CHIRAG EATON Physician Instructions: Reason For Exam: bowel evisceration, strangulated hernia Hospitalization Reason for admission: ABDOMINAL PAIN Condition: Stable Hospital course: 39-year-old female HD #2 diabetes, hypertension, epilepsy, narcolepsy with bowel evisceration complicated by peritonitis. Patient status post surgical intervention. Patient lying in bed. Patient acknowledges abdominal wall pain. Patient pain is appropriate. No reported nursing events. Patient counseled regarding incentive spirometry, early ambulation. Patient knowledges understanding instructions. 01/04: Await gas OR BOWEL movement. Discussed with surgery, and will plan di scontinued NGT once gas or BM and start clear liquid at that time. 01/05: Discussed with the patient, and noted Surgery input, NGT discontinued and CLD started. Encouraged ambulation. 01/06: Patient clinically improved, she states her questions has been answered by the surgeon, surgical wound management discussed in detail. Recommended outpatient Psych eval. (1) Evisceration of bowel Current Visit: Yes Status: Acute Plan to address problem: Surgical team consulted. Patient is status post surgical intervention. Supportive care, early ambulation. Incentive spirometry, out of bed to chair 3 times daily and as needed, ambulation 3 times daily and as needed. Pulmonary toilet. Pain control. (2) Strangulated hernia of abdominal wall Current Visit: Yes Status: Acute Plan to address problem: Patient status post surgical intervention, further care as per surgical team. Continue medical management. (3) Hypertension Current Visit: Yes Status: Acute Qualifiers: Hypertension type: essential hypertension Qualified Code(s): I10 - Essential (primary) hypertension Plan to address problem: Monitor blood pressure every shift, continue medical management. (4) Diabetes Current Visit: Yes Status: Acute Plan to address problem: Consistent carbohydrate diet, sliding scale insulin therapy, Accu-Chek, hypoglycemia protocol. (5) Obesity hypoventilation syndrome Current Visit: Yes Status: Acute Plan to address problem: Balanced diet, increase physical activity at discharge, supplemental oxygen, pulse oximetry, noninvasive positive pressure ventilation as clinically indicated, since symptoms promptly. (6) Wound dehiscence Current Visit: Yes Status: Acute Plan to address problem: Patient being taken to operating room for emergency surgery Dr. Eaton is the surgeon Surgery consult appreciated (7) Left ovarian cyst Current Visit: No Status: Chronic Plan to address problem: Patient had cystectomy Now postop patient has complications Disposition: DC-01 TO HOME OR SELFCARE Time spent for discharge: 35 MINS Core Measure Documentation - Palliative Care Palliative Care/ Comfort Measures: Not Applicable - Core Measures Any of the following diagnoses?: none Exam - Physical Exam Narrative exam: General appearance: Present: severe distress, well-nourished, obese. ngt noted - EENT Eyes: Present: PERRL, EOM intact ENT: hearing intact - Neck Neck: Present: supple - Respiratory Respiratory: bilateral: diminished - Cardiovascular Rhythm: regular Heart Sounds: Present: S1 & S2 - Extremities Extremities: no ischemia Peripheral Pulses: within normal limits - Abdominal General gastrointestinal: incision c/d/i dressing in place, soft, non- distended, other (Appropriately tender) - Integumentary Integumentary: Present: clear, dry, Cas[place] to gravitiy: adequate urine output - Psychiatric Psychiatric: appropriate mood/affect, cooperative - Neurologic Neurologic: CNII-XII intact - Constitutional Vitals: Temp Pulse Resp BP Pulse Ox 98.4 F 92 H 16 139/77 98 01/07/20 07:44 01/07/20 07:44 01/07/20 07:44 01/07/20 07:44 01/07/20 07:44 Plan Activity: advance as tolerated, fall precautions Diet: low fat Wound: per your surgeon's advice, per wound nurse instructions Special Instructions: record daily weights, record daily BP diary Follow [facility] with: [facility] [Other] - 7 Days CHIRAG EATON MD [Staff Physician] - 7 Days KAT ABREU MD [Staff Physician] - 7 Days Prescriptions: labetaloL [Labetalol 200mg TAB] 200 mg PO BID #60 tab Magnesium Hydroxide [Milk of Magnesia] 30 ml PO QDAY #30 oral.liqd Insulin NPH/Regular [Novolin 70/30] 12 unit SQ BIDDIAB #10 ml oxyCODONE /ACETAMINOPHEN [Percocet 5/325 mg] 1 tab PO Q6HR PRN #20 tablet PRN Reason: Pain Albuterol Sulfate [Proventil Hfa] 2 puff IH Q4H PRN #1 nsinhaler PRN Reason: Dyspnea Metoclopramide HCl [Reglan TAB] 5 mg PO TIDAC #30 tablet Other Discharge Orders: Glucometer (Amb) Location: None Selected Glucometer supplies[Amb] Location: None Selected
[2020-01-07 12:58] VITALS: BP 137/89
== END 2020-01-07 16:39 | disposition home health service (06) | DRG 908 ==
LOC: ED 01:06 → 4A 01:56 → OBSVTOIN 01:56
PROVIDERS: ADMIT Internal Medicine; ATTEND Internal Medicine
PROC: 0DS80ZZ Reposition Small Intestine, Open Approach (ICD-10-PCS; principal; 2020-01-03)
DX: T81.32XA Disruption of internal operation (surgical) wound, not elsewhere classified, initial encounter (principal); E66.2 Morbid (severe) obesity with alveolar hypoventilation; E11.9 Type 2 diabetes mellitus without complications; K43.6 Other and unspecified ventral hernia with obstruction, without gangrene; I10 Essential (primary) hypertension; G40.909 Epilepsy, unspecified, not intractable, without status epilepticus; G43.909 Migraine, unspecified, not intractable, without status migrainosus; N83.202 Unspecified ovarian cyst, left side; F32.9 Major depressive disorder, single episode, unspecified; K21.9 Gastro-esophageal reflux disease without esophagitis; J45.909 Unspecified asthma, uncomplicated; G47.419 Narcolepsy without cataplexy; Z68.37 Body mass index [BMI] 37.0-37.9, adult; Z88.1 Allergy status to other antibiotic agents; Z91.041 Radiographic dye allergy status; Z90.49 Acquired absence of other specified parts of digestive tract; Z82.49 Family history of ischemic heart disease and other diseases of the circulatory system
CPT/HCPCS: 36415; 74019; 80048; 80053; 82962; 83036; 85025; 86850; 86900; 86901; 96365; 96375; G0378; J0330; J0360; J1170; J1644; J2405; J2543; J2704; J2710; J2765; J7030; J7120